=== PATIENT | male | born 1960 | race Caucasian/White ===

== ENCOUNTER → 2016-11-03 | Outpatient (CLI) | payer BC ==
[2016-11-03 19:04] LABS: Blood Urea Nitrogen 13 mg/dL (9-20); Non-African American GFR(MDRD) >60 (>60 ml/min/1.73 sqM)
--- NOTE | 2016-11-03 19:39 | CT ---
EXAMINATION TYPE: CT chest w con DATE OF EXAM: 11/03/2016 COMPARISON: 10/18/2015 HISTORY: Patient has no complaints at time of study. Follow up study for history of lung CA. CT DLP: 964.7 mGycm Automated exposure control for dose reduction was used. CONTRAST: CT scan of the chest is performed with IV Contrast, patient injected with 100 mL of Omnipaque 300. FINDINGS: There are surgical clips at the right pulmonary hilum. There is no mediastinal adenopathy. There are no hilar masses. Heart size is normal. There is subpleural interstitial infiltrate in the right lower lobe. The left lung is clear. There is no pleural effusion. There is fatty infiltration of the liver . IMPRESSION: Right lung surgery. No evidence of recurrent tumor. Subpleural chronic right lower lobe density consistent with scarring that appears stable compared to old exam. Fatty infiltration of the liver.
== END ==
LOC: RADCTMAIN 18:37
PROVIDERS: ATTEND Internal Medicine Hematology & Oncology
DX: C34.90 Malignant neoplasm of unspecified part of unspecified bronchus or lung (principal)
CPT/HCPCS: 82565; 84520; 71260; 36415; Q9967

== ENCOUNTER → 2016-12-02 | Outpatient (CLI) | payer BC ==
--- NOTE | 2016-12-03 08:36 | PN ---
This patient is coming in for an annual CPAP and obstructive sleep apnea check. He has severe disease with an AHI of 109. I am glad to report that he has lost approximately 20 pounds. His weight is down to 351. He is using his Simplex full face mask. Looking for an alternative mask and upon further investigation, we were able to fit this patient to an AirFit F20 touch full face mask. A sample was given out to him today. He is doing well. He has no specific complaints. He is averaging more than 6 hours of CPAP use per night and he is waking up alert and awake during the day. No snoring while on the machine. No new onset of medical problems and comorbidities. The patient is benefiting from treatment. He is using his CPAP machine which is an auto machine with a minimum pressure of 10 and maximum pressure of 20. His treatment is successful for now. [place] score is down to 2. No change in medication. Medical problems are essentially the same. CURRENT VITAL SIGNS: Temperature is 97.8, pulse is 62, respirations 16, BP is 145/89, saturation 95% on room air. [place] score is at 2, BMI is 50.3, height is 5,10, weight is 351. GENERAL APPEARANCE: Calm, comfortable. HEENT: Negative for JVD, no goiter or neck mass, short neck, crowding of posterior pharynx. LUNGS: Diminished breath sounds, otherwise clear. Heart sounds are regular rhythm, normal S1, S2. ABDOMEN: Soft, nontender, no organomegaly. EXTREMITIES: No edema, no cyanosis or clubbing. IMPRESSION: 1. Severe symptomatic obstructive sleep apnea, apnea-hypopnea index of 109. Currently on auto CPAP, minimum pressure of 10, maximum pressure of 20 with good clinical response and compliance. 2. Obesity with interval 22 pound weight loss. 3. Hypersomnia, improved and recovered. Current [place] score is down to 2. 4. Diabetes. 5. Hypertension. 6. History of lung cancer, resected. PLAN: 1. Continue auto CPAP at the same level of pressures. 2. Switch this patient to an AirFit F20 touch full face mask. 3. Encourage further weight loss. 4. Treatment was successful, see me back in 1 year's time or earlier if needed. IBIS
== END | disposition home or self-care (01) ==
LOC: SLEEP 16:29
PROVIDERS: ATTEND Internal Medicine Critical Care Medicine
DX: G47.33 Obstructive sleep apnea (adult) (pediatric) (principal); E66.9 Obesity, unspecified; E11.9 Type 2 diabetes mellitus without complications; I10 Essential (primary) hypertension; Z85.118 Personal history of other malignant neoplasm of bronchus and lung

== ENCOUNTER → 2017-08-28 | Outpatient (CLI) | payer BC ==
[2017-08-28 10:59] LABS: INR 1.1 (<1.2); Partial Thromboplastin Time 22.9 sec (22.0-30.0); Prothrombin Time 10.7 sec (9.0-12.0)
[2017-08-28 11:01] LABS: Basophils # (A) 0.1 k/uL (0-0.2); Basophils % (A) 1 %; Eosinophils # (A) 0.4 k/uL (0-0.7); Eosinophils % (A) 4 %; HCT 46.9 % (39.0-53.0); HGB 15.6 gm/dL (13.0-17.5); Lymphocytes # (A) 2.1 k/uL (1.0-4.8); Lymphocytes % (A) 25 %; MCH 29.6 pg (25.0-35.0); MCHC 33.3 g/dL (31.0-37.0); MCV 88.8 fL (80.0-100.0); Mean Platelet Volume 7.3; Monocytes # (A) 0.4 k/uL (0-1.0); Monocytes % (A) 5 %; Neutrophils % (A) 62 %; Platelet Count 186 k/uL (150-450); RBC 5.28 m/uL (4.30-5.90); RDW 13.9 % (11.5-15.5); WBC 8.1 k/uL (3.8-10.6)
[2017-08-28 11:14] LABS: Potassium 4.6 mmol/L (3.5-5.1)
== END | disposition home or self-care (01) ==
LOC: LABPAT 09:31
PROVIDERS: ATTEND Orthopaedic Surgery
DX: Z01.812 Encounter for preprocedural laboratory examination (principal); M17.12 Unilateral primary osteoarthritis, left knee
CPT/HCPCS: 36415; 80051; 85025; 85610; 85730; 87070

== ENCOUNTER 2017-09-07 09:24 | Inpatient (IN) | payer BC ==
[2017-08-31 11:04] VITALS: BMI 44.7
--- NOTE | 2017-09-06 13:32 | HP ---
HISTORY AND PHYSICAL DATE OF ADMISSION: 09/07/2017 HISTORY OF PRESENT ILLNESS: Renard Zheng is a 56-year-old patient seen with symptomatic left knee osteoarthritis. We discussed treatment options. He elected to proceed with left total knee arthroplasty. Consent regarding the procedure was obtained. Medical clearance was provided by Dr. Tor Dupree. PAST MEDICAL HISTORY: Hypertension, yyq-vgdmycm-vqemfetxc diabetes. SURGICAL HISTORY: Noncontributory. MEDICATIONS: Lisinopril/hydrochlorothiazide, metformin, aspirin. ALLERGIES: PENICILLIN. SOCIAL HISTORY: Patient denies. Denies current tobacco use. PHYSICAL EXAMINATION: Evaluation left knee range of motion 0-120 degrees. Large effusion. Tenderness along the lateral joint line. Positive lateral Dallin's crepitus along without patellofemoral compartments. Range of motion. Ligaments stable. Hip rotation without pain. Distal neurovascular exam is intact. RADIOGRAPHS: Left knee radiographs revealed severe lateral and moderate patellofemoral compartment osteoarthritis. IMPRESSION: 1. Left knee osteoarthritis. 2. Njv-alaymiw-neitzifyt diabetes. 3. Hypertension. 4. Obesity. PLAN: Left total knee arthroplasty. Surgery scheduled 09/07/17. MMODL / IJN: [id number] /
[~2017-09-07 09:24] MED LIST: ACETAMINOPHEN TAB 500 MG TAB PO ONE; DEXAMETHASONE SOD PHOSPHATE 10 MG/ML 1 ML VIAL IV ONE; LIDOCAINE 1% 20 ML VIAL (10MG/ML) FOR IV START INTRADERMA PRN; MELOXICAM 7.5 MG TAB PO ONE; MIDAZOLAM 2 MG/2 ML VIAL IV PRN; MORPHINE SULFATE 4 MG/ML SYRINGE IV PRN; ONDANSETRON 4 MG/2 ML VIAL IVP ONE; TRANEXAMIC ACID 1,000 MG in SODIUM CHLORIDE 0.9% 50 ML IVPB ONE; VANCOMYCIN 2,000 MG in SODIUM CHLORIDE 0.9% 500 ML IVPB ONE
[2017-09-07] MEDS: LACTATED RINGERS 1,000 ML IV SCH ×2 (10:16→17:14)
[2017-09-07 10:31] LABS: Glucose,Whole Blood 223 mg/dL (75-99)
[2017-09-07] MEDS ORDERED: ROPIVACAINE 1,100 MG, SODIUM CHLORIDE 0.9% 330 ML MISCELLANE PRN ×2 (11:44)
--- NOTE | 2017-09-07 11:46 | P.ONQ ---
Anesthesiology Proc Note - PNB - Peripheral Nerve Block Performed Left Adductor Canal Infusion Time Out Performed: Yes Procedure Start Time: :29 Procedure Stop Time: :35 Indication: Acute Post-Operative Pain, Requested by physician Sedation Type: Sedate with meaningful contact maintained Preparation: Sterile Dressing Position: Supine Catheter: Indwelling Needle Types: On-Q Needle Size: 100mm (4") Needle Gauge: 21 Technique: Ultrasound Injectate: 0.5% Ropivacaine (see comment for volume) (ropi .5% 20 cc) Blood Aspirated: No Pain Paresthesia on Injection Noted: No Resistance on Injection: Normal Events: Uneventful and Well Tolerated
[2017-09-07] MEDS ORDERED: ROPIVACAINE 246.25 MG, EPINEPHrine 0.5 MG, KETOROLAC 30 MG, cloNIDine HCL/PF 80 MCG, WA... MISCELLANE ONE ×5 (12:45)
[2017-09-07] MEDS ORDERED: SODIUM CHLORIDE 0.9% 100 ML BAG ONE (13:27)
[2017-09-07] MEDS ORDERED: KETAMINE 10 MG/ML 20 ML VIAL ONE (13:27)
[2017-09-07] MEDS ORDERED: MIDAZOLAM 2 MG/2 ML VIAL ONE (13:27)
[2017-09-07] MEDS ORDERED: TRANEXAMIC ACID 1,000 MG/10 ML VIAL ONE (13:27)
[2017-09-07] MEDS ORDERED: LIDOCAINE 1% INJ 10MG/ML (20 ML MDV) ONE (13:27)
[2017-09-07] MEDS ORDERED: PROPOFOL 10 MG/ML 20 ML VIAL IV ONE (13:27)
[2017-09-07] MEDS ORDERED: fentaNYL (PF) 50 MCG/ML 2 ML AMP ONE (13:27)
[2017-09-07] MEDS ORDERED: CLINDAMYCIN 1,800 MG in SODIUM CHLORIDE 0.9% IRRIGATIO 3,000 ML IRRIGATION ONE (14:07)
[2017-09-07] MEDS ORDERED: LACTATED RINGERS 1,000 ML IV ONE ×2 (14:50→16:25)
[2017-09-07] MEDS ORDERED: ONDANSETRON 4 MG/2 ML VIAL IVP PRN (15:52)
[2017-09-07] MEDS ORDERED: hydrOXYzine PAMOATE 25 MG CAP PO PRN (15:52)
[2017-09-07] MEDS ORDERED: HYDROmorphone 0.5 MG/0.5 ML SYRINGE IVP PRN ×3 (15:52)
[2017-09-07] MEDS ORDERED: NALOXONE 0.4 MG/ML 1 ML VIAL IV PRN (15:52)
[2017-09-07] MEDS ORDERED: HYDROcodone/APAP 7.5-325MG 1 EACH TAB PO PRN ×2 (15:52)
--- NOTE | 2017-09-07 15:52 | P.OP ---
Date of Procedure: 09/07/17 Preoperative Diagnosis: Left knee osteoarthritis Postoperative Diagnosis: Left knee osteoarthritis Procedure(s) Performed: Left total knee arthroplasty Implants: 1. Microport evolution MP CS/CR size 6 left cemented femoral component 2. Microport evolution MP 6 left cemented tibial tibial base 3. Microport evolution MP CS size 6 left 10 mm polyethylene tibial insert 4. Microport advance all polyethylene cemented patella 38 mm Anesthesia: regional (Adductor canal catheter), local, spinal Surgeon: Faustino Ayers Director Of Advertising Sales #1: Fabricio Woodard Estimated Blood Loss (ml): 75 Pathology: other (Bone) Condition: stable Disposition: PACU Indications for Procedure: 56-year-old patient seen was symptomatic left knee osteoarthritis. After treatment options were discussed, he elected to proceed with total knee arthroplasty. Operative Findings: see description of procedure Description of Procedure: Patient was taken to the operative suite after having an adductor canal catheter placed by the department of anesthesia. Patient underwent a spinal anesthetic by the department of anesthesia. Patient was given preoperative IV intake antibiotics and TXA. A well-padded tourniquet was placed about the [] lower extremity. The lower extremity was then prepped and draped in the normal sterile orthopedic fashion. The extremity was elevated, a tourniquet was insufflated to 350. A standard anterior incision was made sharply through skin. Dissection was taken down through the subcutaneous soft tissues down to the extensor mechanism. A medial arthrotomy was performed, patella was everted and knee was flexed. There was advanced osteoarthritis noted. A proximal tibial cutting guide was positioned. Proximal tibial cut was made. A distal intramedullary femoral cutting guide was positioned, distal femoral cut made. We placed the appropriate sizing guide and selected the appropriate size. A distal 4-in-1 femoral cutting block was positioned, distal femoral cuts were made. We now placed a trial femoral component into position, along with an appropriate size tibial tray and insert. We now took the knee through range of motion and had full extension good flexion and good overall soft tissue balance noted. The patella was everted and a flush cut made with patellar quad tendon. We templated the patella, appropriate drill holes were made. An appropriate trial patella was positioned, knee was taken through full range of motion with the patella tracking very nicely. The trial patella was removed. Drill holes were made through the femoral component. All trial components were removed after marking off the appropriate rotation of the tibia. Retractors were now positioned along the proximal tibia. An appropriate keel punch was made with the appropriate size tibial guide. At this point appropriate size implants were chosen and opened. The joint was irrigated copiously with pulse lavage mechanical irrigation. The posterior capsule was infiltrated with local analgesic. We mixed antibiotic methylmethacrylate. Once the methyl methacrylate was ready, the tibial component was cemented into place removing any excess methylmethacrylate. The femoral component was cemented into place removing the removing any excess methylmethacrylate. We then inserted the appropriate size polyethylene tibial insert. We made sure that it was locked into position. We took the knee into full extension, and then back in a flexion making sure we had removed any excess methylmethacrylate. The patellar component was then cemented down and secured with clamp. Excess methylmethacrylate removed. We kept the knee in full extension, patellar clamp in position until methylmethacrylate had hardened. Once it had hardened the patellar clamp was removed. The knee was taken through full range of motion. The patella tracked nicely. There was good soft tissue balancing. The tourniquet was now released. Additional hemostasis was achieved via electrocautery. The second gram of TXA was given. The wound was irrigated with pulse lavage mechanical irrigation. The extensor mechanism was repaired with Vicryl. We checked the repair with range of motion and it was stable. The subcutaneous soft tissues were repaired with Vicryl in layers. The skin was approximated with pernio/Dermabond. Sterile dressings were applied followed by loose web roll and Blanco bandage. The patient was transferred to a bed, and taken to recovery in stable and satisfactory condition. Ashish SPIVEY assisted with the procedure.
--- NOTE | 2017-09-07 16:18 | XR ---
Left knee Limited HISTORY: Status post knee arthroplasty 2 views of the left knee Patient is status post left knee arthroplasty. There is lucency in the soft tissues. Alignment is zo tomic. IMPRESSION: Orthopedic follow-up.
[2017-09-07] MEDS: INSULIN ASPART 100 UNIT/ML 1 ML 10 ML VIAL SQ SCH ×3 (17:09→21:05)
[2017-09-07] MEDS: metFORMIN 500 MG TAB PO SCH (17:13)
[2017-09-07] MEDS: traMADol 50 MG TAB PO SCH ×2 (17:13→21:05)
[2017-09-07 17:21] LABS: Glucose,Whole Blood 280 mg/dL (75-99)
[2017-09-07 20:18] LABS: Glucose,Whole Blood 341 mg/dL (75-99)
[2017-09-07] MEDS ORDERED: SENNOSIDES-DOCUSATE SODIUM 1 EACH TAB PO SCH (21:00)
[2017-09-07] MEDS ORDERED: INSULIN DETEMIR 100 UNIT/ML 10 ML VIAL SQ STA (23:10)
--- NOTE | 2017-09-08 00:21 | CONS ---
CONSULTATION REASON FOR CONSULTATION: Postoperative medical management. HISTORY OF PRESENT ILLNESS: This 56-year-old gentleman is status post left total knee arthroplasty today. The patient had significant arthritis. The patient is doing fairly well. He has a past history of diabetes mellitus, obesity and previous history of carcinoma of the lung. The patient is actually doing fairly well. He denies any pain. REVIEW OF SYSTEMS: NEURO: Denies any headaches, dizziness. PSYCH: No anxiety. CARDIAC: No chest pain, angina, palpitation. RESPIRATORY: Denies shortness of breath, cough. GI: No nausea, vomiting, abdominal pain. No bowel movement. : No symptoms of dysuria or hematuria. EXTREMITIES: Denies pain at present. CONSTITUTIONAL: No fever or chills. PHYSICAL EXAMINATION: Pleasant gentleman, at present in no distress. VITAL SIGNS: Temperature 96.5, pulse 67, respirations 16, blood pressure 129/64, pulse ox of 94% on room air. HEENT: Normocephalic. NECK: No JVD. CHEST: Clear to auscultation. CARDIAC: Normal S1, S2 with no gallops, murmurs. ABDOMEN: Soft. Bowel sounds present. Extremities reveal no edema. Good pulses, both upper and lower extremities. Neurologically awake, alert, oriented x3 with well-coordinated movements, both upper extremities. LABORATORY ASSESSMENT: Blood sugars which were elevated. ASSESSMENT: 1. Diabetes mellitus with elevated blood sugar. 2. Status post left total knee arthroplasty. 3. Remote history of carcinoma of the lung. PLAN: The patient is stable. Continue present medical regimen. Patient's condition was discussed with the patient. Will give him Levemir 15 units tonight. MMODL / IJN: [id number] /
[2017-09-08] MEDS: LACTATED RINGERS 1,000 ML IV SCH ×2 (04:35→05:16)
[2017-09-08 07:25] LABS: Glucose,Whole Blood 196 mg/dL (75-99)
--- NOTE | 2017-09-08 07:55 | P.PN ---
Progress Note - Text 09/08 740am 56-year-old male status post left total knee replacement. Patient has an On-Q pump for postop pain control with the solution running at 8 mL an hour. Patient has VAS of 0. Patient does have thigh pain which is probably secondary to tourniquet. -
[2017-09-08] MEDS ORDERED: GLIMEPIRIDE 1 MG TAB PO SCH (08:15)
[2017-09-08] MEDS: INSULIN ASPART 100 UNIT/ML 1 ML 10 ML VIAL SQ SCH ×2 (08:17→12:37)
[2017-09-08 08:19] LABS: Basophils % (A) 0 %; Eosinophils # (A) 0.2 k/uL (0-0.7); Eosinophils % (A) 1 %; HCT 41.9 % (39.0-53.0); HGB 13.8 gm/dL (13.0-17.5); Lymphocytes # (A) 2.1 k/uL (1.0-4.8); Lymphocytes % (A) 16 %; MCH 29.6 pg (25.0-35.0); MCHC 32.9 g/dL (31.0-37.0); MCV 89.8 fL (80.0-100.0); Mean Platelet Volume 7.6; Monocytes # (A) 0.7 k/uL (0-1.0); Monocytes % (A) 5 %; Neutrophils # (A) 9.6 k/uL (1.3-7.7); Neutrophils % (A) 76 %; Platelet Count 200 k/uL (150-450); RBC 4.67 m/uL (4.30-5.90); RDW 14.1 % (11.5-15.5); WBC 12.7 k/uL (3.8-10.6)
[2017-09-08] MEDS: metFORMIN 500 MG TAB PO SCH (08:21)
[2017-09-08] MEDS ORDERED: ENOXAPARIN 30 MG/0.3 ML SYRINGE SQ SCH (09:00)
[2017-09-08] MEDS ORDERED: LISINOPRIL-HCTZ 20-25 MG 1 EACH TAB PO SCH (09:00)
[2017-09-08] MEDS ORDERED: MELOXICAM 7.5 MG TAB PO SCH (09:00)
[2017-09-08] MEDS ORDERED: FAMOTIDINE 20 MG TAB PO SCH (09:00)
[2017-09-08] MEDS: traMADol 50 MG TAB PO SCH ×2 (10:27→14:14)
[2017-09-08 11:48] LABS: Glucose,Whole Blood 224 mg/dL (75-99)
--- NOTE | 2017-09-08 14:08 | P.PN ---
Subjective Progress Note Date: 09/08/17 Principal diagnosis: Status post left total knee arthroplasty Patient seen today resting in his hospital bed, he appears comfortable. Ambulated well with therapy. His pain is controlled. He denies any headaches, lightheadedness, chest pain or shortness breath. Objective - Vital Signs Vital signs: Vital Signs Temp 97.6 F 09/08/17 07:28 Pulse 65 09/08/17 07:28 Resp 18 09/08/17 07:28 BP 113/58 09/08/17 07:28 Pulse Ox 94 L 09/08/17 07:28 Intake & Output 09/07/17 09/08/17 09/08/17 18:59 06:59 18:59 Intake Total 3001 1960 Output Total 375 975 Balance 2626 985 Intake: IV 3001 Intake, IV Titration 960 Amount Lactated Ringers 1,000 ml 960 @ 80 mls/hr IV .[id number] CECILY Rx#:[id number] Oral 1000 Output: Urine 300 975 Estimated Blood Loss 75 Other: Voiding Method Urinal - Exam Left lower extremity: Incision is clean, dry, and intact. The prineo tape is in good condition. There is minimal soft tissue swelling and ecchymosis surrounding the medial and lateral aspects of the incision. Calf is soft, no tenderness with palpation. Plantar flexion, dorsiflexion, EHL, FHL are intact. Sensory exam to light touch throughout the extremity is intact, dorsal pedis pulses 2+. - Labs CBC & Chem 7: 09/08/17 07:50 Labs: Abnormal Lab Results - Last 24 Hours (Table) 09/07/17 09/07/17 09/08/17 Range/Units 17:19 20:11 07:14 WBC (3.8-10.6) k/uL Neutrophils # (1.3-7.7) k/uL POC Glucose (mg/dL) 280 H 341 H 196 H (75-99) mg/dL 09/08/17 09/08/17 Range/Units 07:50 11:45 WBC 12.7 H (3.8-10.6) k/uL Neutrophils # 9.6 H (1.3-7.7) k/uL POC Glucose (mg/dL) 224 H (75-99) mg/dL Assessment and Plan Plan: Assessment: Postoperative day 1 status post left total knee arthroplasty. Plan: Pain control, continue use of oral medication GI and DVT prophylaxis, patient currently and subcu medication, likely discharged home on Xarelto 10 mg daily Ice and elevate often/daily dressing changes Continue CPM and encourage incentive spirometer Medical recommendations Discharge planning: Patient will likely be discharged home today Time with Patient: Less than 30
[2017-09-08 15:51] VITALS: BP 118/60; PULSE 68; RESP 20; TEMP 97.8
--- NOTE | 2017-09-08 16:42 | P.DS ---
Providers Date of admission: 09/07/17 09:24 Expected date of discharge: 09/08/17 Attending physician: Faustino Ayers Consults: 09/07/17 15:52 Consult Physician Routine Consulting Provider: Tor Dupree Reason/Comments: Medical management Do you want consulting provider notified?: Yes Primary care physician: Tor Dupree Hospital Course: Date of admission: 09/07/2017 Date of discharge: 09/08/2017 Admission diagnosis: Status post left total knee arthroplasty Discharge diagnosis: Same Attending physician: Dr. Ayers Surgical procedures: Left total knee arthroplasty Brief history: Patient is a 56-year-old male with a history of progressive primary left knee osteoarthritis. At this point patient has failed conservative treatment measures and has opted to proceed with a elective left total knee arthroplasty. Hospital course: Details of patient's surgery can be found in operative report. Patient tolerated the procedure well and was subsequently transported to orthopedic floor. Patient's orthopeidc and medical care was provided daily. Patient had daily laboratory tests performed for evaluation of overall blood counts. Patient had daily physical therapy to include strengthening range of motion as well as education with walker ambulation. Patient had daily CPM usage as part of their physical therapy program. Patient was treated with Lovenox for their postoperative DVT prophylaxis during their inpatient stay. Patient was noted to have a relatively uneventful postoperative course. Patient reported satisfactory pain control with oral pain medications by postoperative day 0. Patient showed satisfactory progress with physical therapy. Patient moved steadily through the program and had no difficulty meeting the goals by postoperative day 1. Given patient's otherwise satisfactory course and having met physical therapy goals, plan is to discharge patient home on postoperative day 1. Discharge condition/disposition: Patient will be discharged home in stable condition. Discharge medications: Instructions are given on resumption of patient's normal daily medications per primary care recommendation, in addition patient will be prescribed [place] 7.5 mg/325 mg, tramadol 50 mg, Colace 100 mg, Xarelto 10 mg. Discharge instructions: 1. Wound care and infection precautions, keep incision dry and covered while showering, no lotions, creams, moisturizers. No soaking, tubs, pools, hottubs. Do not scrub over the incision. 2. Weight-bear as tolerated with walker / cane until follow-up. 3. Ice and elevate when necessary. Do not exceed 20 minutes per hour with ice pack. 4. Utilize compression sleeve until seen at first follow up appointment. 5. Visiting nursing care. 6. Home physical therapy including home CPM. 7. Pain meds and anticoagulants per prescription. 8. Pain medication has potential to cause constipation. Increase oral fluid and fiber intake. Contact primary care provider if you have not had a bowel movement within 48 hours after discharge 9. No anti-inflammatory medication until discussed at first post operative visit, this including Motrin, Aleve, Mobic, Diclofenac. 10. Follow up in office at 2 weeks postop with Ashish Woodard PA-C 11. Follow up with your primary care doctor 7-10 days after discharge. 12. Contact [facility] with any questions, . Procedures: Left total knee arthroplasty Patient Condition at Discharge: Good Plan - Discharge Summary Discharge Rx Participant: No New Discharge Prescriptions: New Rivaroxaban [Xarelto] 10 mg PO DAILY #12 tab Docusate [Colace] 100 mg PO DAILY #30 capsule HYDROcodone/APAP 7.5-325MG [[place] 7.5] 1 - 2 each PO Q6HR PRN #60 tab PRN Reason: Pain traMADol HCl [Ultram] 50 mg PO Q6H PRN #40 tab PRN Reason: Pain No Action metFORMIN HCL [Glucophage] 1,000 mg PO BID Aspirin [Adult Low Dose Aspirin EC] 81 mg PO DAILY Multivitamins, Thera [Multivitamin (formulary)] 1 tab PO DAILY Vitamin E (Unknown Dose) 1 tab PO DAILY [place]-3 Fatty Acids/Fish Oil [Fish Oil 1,000 mg Softgel] 1 cap PO DAILY Lisinopril-Hctz 20-25 mg [Zestoretic 20-25] 1 tab PO DAILY Discharge Medication List Aspirin [Adult Low Dose Aspirin EC] 81 mg PO DAILY 08/31/17 [History] Lisinopril-Hctz 20-25 mg [Zestoretic 20-25] 1 tab PO DAILY 08/31/17 [History] Multivitamins, Thera [Multivitamin (formulary)] 1 tab PO DAILY 08/31/17 [History ] [place]-3 Fatty Acids/Fish Oil [Fish Oil 1,000 mg Softgel] 1 cap PO DAILY [History] Vitamin E (Unknown Dose) 1 tab PO DAILY 08/31/17 [History] metFORMIN HCL [Glucophage] 1,000 mg PO BID 08/31/17 [History] Docusate [Colace] 100 mg PO DAILY #30 capsule 09/08/17 [Rx] HYDROcodone/APAP 7.5-325MG [[place] 7.5] 1 - 2 each PO Q6HR PRN #60 tab 09/08/17 [ Rx] Rivaroxaban [Xarelto] 10 mg PO DAILY #12 tab 09/08/17 [Rx] traMADol HCl [Ultram] 50 mg PO Q6H PRN #40 tab 09/08/17 [Rx] Follow up Appointment(s)/Referral(s): Tor Dupree MD [Primary Care Provider] - 09/16/17 3:45 pm [facility], [NON-STAFF] - Fabricio Woodard PAC [PHYSICIAN [employer] PA[employer]] - 09/23/17 2:30 pm Activity/Diet/Wound Care/Special Instructions: Orthopedic Discharge Instructions: 1. Wound care and infection precautions, keep incision dry and covered while showering, no lotions, creams, moisturizers. No soaking, pools, hot tubs. Do not scrub over incision. 2. Weight-bear as tolerated with walker / cane until follow-up. 3. Ice and elevate when necessary. Do not exceed 20 minutes per hour with ice pack. 4. Utilize compression sleeve until seen at first follow up appointment. 5. Visiting nursing care. 6. Home physical therapy including home CPM. 7. Pain meds and anticoagulants per prescription. 8. Pain medication has potential to cause constipation. Increase oral fluid and fiber intake. Contact primary care provider if you have not had a bowel movement within 48 hours after discharge. 9. No anti-inflammatory medication until discussed at first post operative visit, this including Motrin, Aleve, Mobic, Diclofenac. 10. Follow up in office at 2 weeks postop with Ashish Woodard PA-C 11. Follow up with your primary care doctor 7-10 days after discharge. 12. Contact [facility] with any questions, . Discharge Disposition: HOME WITH HOME HEALTH SERVICES
[2017-09-08 17:38] LABS: Glucose,Whole Blood 245 mg/dL (75-99)
[2017-09-08] MEDS ORDERED: INSULIN DETEMIR 100 UNIT/ML 10 ML VIAL SQ SCH (21:00)
--- NOTE | 2017-09-08 22:24 | PN ---
PROGRESS NOTE ATTENDING PHYSICIAN: Dr. Ayers. CONSULTING PHYSICIAN: Dr. Nader Dupree. CHIEF COMPLAINT: Re-evaluation. HISTORY OF PRESENT ILLNESS: This is a 56-year-old who has undergone left total knee arthroplasty. The patient has a history of degenerative arthritis. The patient also has a history of obesity with previously failed bariatric surgery. The patient has a history of carcinoma of the lung with no evidence of recurrence. The patient has undergone left total knee arthroplasty, doing well. REVIEW OF SYSTEMS: NEURO: Denies any headaches dizziness. Psych: No anxiety. Cardiac no chest pain, angina, palpitations. Respiratory: No shortness of breath, cough, hemoptysis. GI: No nausea, vomiting, abdominal pain, diarrhea. : No symptoms of dysuria, hematuria, urgency or frequency. Extremities: No pain or edema. Constitutional: No fever, chills. PHYSICAL EXAMINATION: A 56-year-old gentleman at present in no distress. Vital Signs recorded, temperature 97.6, pulse 65, respirations 18, blood pressure 113/58, pulse ox of 94% on room air. HEENT: Normocephalic. Neck: No JVD. CHEST: Clear to auscultation. Cardiac: Normal S1, S2 with no gallops, murmurs, rubs. ABDOMEN: Soft. Bowel sounds present. Extremities revealed no edema. Left knee area pain. Neurological: Awake, alert, oriented with well-coordinated movements both upper extremities. LABORATORY ASSESSMENT: CBC which revealed hemoglobin 13.8, white count 12.7, blood sugar was 196 this morning. ASSESSMENT: 1. Diabetes mellitus with poor control. 2. Obesity. 3. Previous history of carcinoma of the lung. PLAN: The patient at present is stable. Continue present medical regimen. Patient's condition discussed with the patient. Prognosis guarded. The patient will be placed on Amaryl 1 mg b.i.d. The patient to continue his metformin. This Amaryl is a new addition. The patient's condition discussed with the patient. Prognosis guarded. Pres[facility] for Am[facility] [place]. MMGRACE / RAIZA: [id number] /
== END 2017-09-08 17:59 | disposition home health service (06) | DRG 470 ==
LOC: 2ORMAIN 09:24 → 3SUR 15:38
PROVIDERS: ADMIT Orthopaedic Surgery; ATTEND Orthopaedic Surgery
PROC: 0SRD0J9 Replacement of Left Knee Joint with Synthetic Substitute, Cemented, Open Approach (ICD-10-PCS; principal; 2017-09-07 12:50)
DX: M17.12 Unilateral primary osteoarthritis, left knee (principal); Z68.41 Body mass index [BMI] 40.0-44.9, adult; E11.9 Type 2 diabetes mellitus without complications; I10 Essential (primary) hypertension; Z79.84 Long term (current) use of oral hypoglycemic drugs; Z85.118 Personal history of other malignant neoplasm of bronchus and lung; Z79.82 Long term (current) use of aspirin; Z79.899 Other long term (current) drug therapy; Z88.0 Allergy status to penicillin; Z98.84 Bariatric surgery status; G47.33 Obstructive sleep apnea (adult) (pediatric); E66.01 Morbid (severe) obesity due to excess calories
CPT/HCPCS: 85025

== ENCOUNTER 2017-10-02 20:04 | Inpatient (IN) | payer BC ==
[2017-10-02] MEDS ORDERED: MORPHINE SULFATE 2 MG/ML SYRINGE IVP STA (20:12)
[2017-10-02] MEDS ORDERED: SODIUM CHLORIDE 0.9% 1,000 ML IV STA (20:17)
[2017-10-02] MEDS ORDERED: SODIUM CHLORIDE 0.9% 500 ML IV STA (20:17)
--- NOTE | 2017-10-02 20:24 | ED ---
General Adult HPI - General Chief complaint: Extremity Injury, Lower Stated complaint: Knee Injury Time Seen by Provider: 10/02/17 20:13 Source: patient, RN notes reviewed, old records reviewed Mode of arrival: EMS Limitations: no limitations - History of Present Illness Initial comments: This is a 56-year-old male the ER for evaluation. Patient does say for evaluation regarding severe left lower Shorty pain. Patient had recent fall knee replacement by Dr. Loulou Hurd here at this hospital. This happened about a month ago. Patient has had adequate healing feeling fine, went to step up into a truck and split open his incision is left leg. Down to the hardware. Minimal bleeding. Patient Brenning of mild pain left lower extremity. No other injury - Related Data Home Medications Medication Instructions Recorded Confirmed Aspirin [Adult Low Dose Aspirin EC] 81 mg PO DAILY 08/31/17 10/02/17 Lisinopril-Hctz 20-25 mg 1 tab PO DAILY 08/31/17 10/02/17 [Zestoretic 20-25] Multivitamins, Thera [Multivitamin 1 tab PO DAILY 08/31/17 10/02/17 (formulary)] [place]-3 Fatty Acids/Fish Oil [Fish 1 cap PO DAILY 08/31/17 10/02/17 Oil 1,000 mg Softgel] Vitamin E (Unknown Dose) 1 tab PO DAILY 08/31/17 10/02/17 metFORMIN HCL [Glucophage] 1,000 mg PO BID 08/31/17 10/02/17 HYDROcodone/APAP 7.5-325MG [[place] 1 - 2 tab PO Q6HR PRN 10/02/17 10/02/17 7.5] Previous Rx's Medication Instructions Recorded Docusate [Colace] 100 mg PO DAILY #30 capsule 09/08/17 Glimepiride [Amaryl] 1 mg PO AC-BRKFST #1 tab 09/08/17 Rivaroxaban [Xarelto] 10 mg PO DAILY #12 tab 09/08/17 traMADol HCl [Ultram] 50 mg PO Q6H PRN #40 tab 09/08/17 Allergies Allergy/AdvReac Type Severity Reaction Status Date / Time Penicillins AdvReac Unknown PASSED OUT Verified 10/02/17 20:17 Review of Systems ROS Statement: Those systems with pertinent positive or pertinent negative responses have been documented in the HPI. ROS Other: All systems not noted in ROS Statement are negative. Past Medical History Past Medical History: Cancer, Diabetes Mellitus, Hypertension, Osteoarthritis ( OA), Sleep Apnea/CPAP/BIPAP Additional Past Medical History / Comment(s): HX LUNG CANCER WITH 1/3 OF RIGHT LUNG REMOVED WITH CHEMO(10YRS AGO).,USES C-PAP MACHINE., [place]. History of Any Multi-Drug Resistant Organisms: None Reported Past Surgical History: Joint Replacement, Orthopedic Surgery Additional Past Surgical History / Comment(s): 1/3 RIGHT LUNG REMOVED. Past Anesthesia/Blood Transfusion Reactions: No Reported Reaction Past Psychological History: No Psychological Hx Reported Smoking Status: Former smoker Past Alcohol Use History: Rare Past Drug Use History: None Reported - Past Family History Mother Family Medical History: No Reported History General Exam - General Exam Comments Initial Comments: Left lower Shorty wound dehiscence, mild bleeding, positive distal pulses dorsalis pedis posterior tibialis Limitations: no limitations General appearance: alert, in no apparent distress Head exam: Present: atraumatic, normocephalic, normal inspection Eye exam: Present: normal appearance, PERRL, EOMI. Absent: scleral icterus, conjunctival injection, periorbital swelling ENT exam: Present: normal exam, mucous membranes moist Neck exam: Present: normal inspection. Absent: tenderness, meningismus, lymphadenopathy Respiratory exam: Present: normal lung sounds bilaterally. Absent: respiratory distress, wheezes, rales, rhonchi, stridor Cardiovascular Exam: Present: regular rate, normal rhythm, normal heart sounds. Absent: systolic murmur, diastolic murmur, rubs, gallop, clicks GI/Abdominal exam: Present: soft, normal bowel sounds. Absent: distended, tenderness, guarding, rebound, rigid Extremities exam: Present: normal inspection, full ROM, normal capillary refill. Absent: tenderness, pedal edema, joint swelling, calf tenderness Back exam: Present: normal inspection Neurological exam: Present: alert, oriented X3, CN II-XII intact Psychiatric exam: Present: normal affect, normal mood Skin exam: Present: warm, dry, intact, normal color. Absent: rash Course Vital Signs 10/02/17 10/02/17 20:16 20:57 Temperature 98.8 F Pulse Rate 78 80 Respiratory 18 18 Rate Blood Pressure 124/58 122/66 O2 Sat by Pulse 97 96 Oximetry - Reevaluation(s) Reevaluation #1: 10/02/17 20:26 ,Dr Ayers is paged Medical Decision Making - Medical Decision Making 56 male the ER for evaluation, positive left wound dehiscence. Patient will go to operating room for surgical repair - Lab Data Result diagrams: 10/02/17 20:52 Lab Results 10/02/17 Range/Units 20:52 WBC 10.3 (3.8-10.6) k/uL RBC 4.38 (4.30-5.90) m/uL Hgb 13.0 (13.0-17.5) gm/dL Hct 39.4 (39.0-53.0) % MCV 89.8 (80.0-100.0) fL MCH 29.7 (25.0-35.0) pg MCHC 33.1 (31.0-37.0) g/dL RDW 14.2 (11.5-15.5) % Plt Count 300 (150-450) k/uL Neutrophils % 70 % Lymphocytes % 20 % Monocytes % 5 % Eosinophils % 3 % Basophils % 0 % Neutrophils # 7.2 (1.3-7.7) k/uL Lymphocytes # 2.1 (1.0-4.8) k/uL Monocytes # 0.5 (0-1.0) k/uL Eosinophils # 0.3 (0-0.7) k/uL Basophils # 0.0 (0-0.2) k/uL - Radiology Data Radiology results: report reviewed (X-ray shows no fracture left knee), image reviewed Disposition Clinical Impression: Wound dehiscence, surgical Narrative: Left Total Knee Wound Dehissence Disposition: ADMITTED IP TO THIS [facility] Condition: Good Is patient prescribed a controlled substance at d/c from ED?: No Referrals: Tor Dupree MD [Primary Care Provider] - 1-2 days
--- NOTE | 2017-10-02 20:54 | XR ---
EXAMINATION TYPE: XR knee limited LT DATE OF EXAM: 10/02/2017 COMPARISON: 09/07/2017 HISTORY: Knee pain TECHNIQUE: 2 views FINDINGS: There is a left knee prosthesis. There is extensive soft tissue deformity over the anterior aspect of the knee consistent with dehiscence. Components are in anatomic position. IMPRESSION: No fracture seen. No evidence of osteomyelitis. Significant anterior soft tissue deformit y.
[2017-10-02 21:02] LABS: Basophils % (A) 0 %; Eosinophils # (A) 0.3 k/uL (0-0.7); Eosinophils % (A) 3 %; HCT 39.4 % (39.0-53.0); Lymphocytes # (A) 2.1 k/uL (1.0-4.8); Lymphocytes % (A) 20 %; MCH 29.7 pg (25.0-35.0); MCHC 33.1 g/dL (31.0-37.0); MCV 89.8 fL (80.0-100.0); Mean Platelet Volume 6.9; Monocytes # (A) 0.5 k/uL (0-1.0); Monocytes % (A) 5 %; Neutrophils # (A) 7.2 k/uL (1.3-7.7); Neutrophils % (A) 70 %; Platelet Count 300 k/uL (150-450); RBC 4.38 m/uL (4.30-5.90); RDW 14.2 % (11.5-15.5); WBC 10.3 k/uL (3.8-10.6)
[2017-10-02 21:11] LABS: ALT 41 U/L (21-72); AST 21 U/L (17-59); Albumin 3.8 g/dL (3.5-5.0); Alkaline Phosphatase 149 U/L (38-126); Anion Gap 13 mmol/L; Blood Urea Nitrogen 14 mg/dL (9-20); Calcium 9.3 mg/dL (8.4-10.2); Carbon Dioxide 22 mmol/L (22-30); Chloride 97 mmol/L (98-107); Glucose 168 mg/dL (74-99); Magnesium 1.7 mg/dL (1.6-2.3); Phosphorus 3.8 mg/dL (2.5-4.5); Potassium 4.4 mmol/L (3.5-5.1); Sodium 132 mmol/L (137-145); Total Bilirubin 0.4 mg/dL (0.2-1.3); Total Protein 6.3 g/dL (6.3-8.2)
--- NOTE | 2017-10-02 21:11 | P.HPOR ---
History of Present Illness H&P Date: 10/02/17 Chief Complaint: Wound dehiscence left knee Patient is a 56 year-old male who reported to [facility] today with regards to a injury to his left knee. Patient states that he was getting up into a truck, when he felt tearing involving the incision over the anterior aspect of his left knee. He had immediate pain, and fell back of the truck landing on his buttock. He noticed the entire incision of the anterior aspect of his left knee it opened up, he was able to see his total knee arthroplasty components. Patient is a recent history of a left total knee arthroplasty by Dr. Ayers on 09/08/2017. Patient had been doing very well after surgery. I personally saw the patient and the office last week for his first postop visit. This incision was well healing, there is no signs of wound dehiscence or infection. He was scheduled to begin outpatient therapy on 10/05/2017. At bedside in the emergency room, he is resting comfortably, the knees bent to about 65, there is multiple bandages wrapped around the knee at this time. I spoke with the ER physician, he states he was able to see the implants. With sterile gloves, I was able to peel back the dressing and confirmed the extent of the left knee wound. Patient was then scheduled for an x-ray and blood work, with plan for immediate transfer to the operating room for irrigation and debridement procedure and wound closure. Review of Systems Constitutional: Reports as per HPI Past Medical History Past Medical History: Cancer, Diabetes Mellitus, Hypertension, Osteoarthritis ( OA), Sleep Apnea/CPAP/BIPAP Additional Past Medical History / Comment(s): HX LUNG CANCER WITH 1/3 OF RIGHT LUNG REMOVED WITH CHEMO(10YRS AGO).,USES C-PAP MACHINE., [place]. History of Any Multi-Drug Resistant Organisms: None Reported Past Surgical History: Joint Replacement, Orthopedic Surgery Additional Past Surgical History / Comment(s): 1/3 RIGHT LUNG REMOVED. Past Anesthesia/Blood Transfusion Reactions: No Reported Reaction Past Psychological History: No Psychological Hx Reported Smoking Status: Former smoker Past Alcohol Use History: Rare Past Drug Use History: None Reported - Past Family History Mother Family Medical History: No Reported History Medications and Allergies Home Medications Medication Instructions Recorded Confirmed Type Aspirin [Adult Low Dose Aspirin EC] 81 mg PO DAILY 08/31/17 10/02/17 History Lisinopril-Hctz 20-25 mg 1 tab PO DAILY 08/31/17 10/02/17 History [Zestoretic 20-25] Multivitamins, Thera [Multivitamin 1 tab PO DAILY 08/31/17 10/02/17 History (formulary)] [place]-3 Fatty Acids/Fish Oil [Fish 1 cap PO DAILY 08/31/17 10/02/17 History Oil 1,000 mg Softgel] Vitamin E (Unknown Dose) 1 tab PO DAILY 08/31/17 10/02/17 History metFORMIN HCL [Glucophage] 1,000 mg PO BID 08/31/17 10/02/17 History Docusate [Colace] 100 mg PO DAILY #30 capsule 09/08/17 10/02/17 Rx Glimepiride [Amaryl] 1 mg PO AC-BRKFST #1 tab 09/08/17 10/02/17 Rx Rivaroxaban [Xarelto] 10 mg PO DAILY #12 tab 09/08/17 10/02/17 Rx traMADol HCl [Ultram] 50 mg PO Q6H PRN #40 tab 09/08/17 10/02/17 Rx HYDROcodone/APAP 7.5-325MG [[place] 1 - 2 tab PO Q6HR PRN 10/02/17 10/02/17 History 7.5] Allergies Allergy/AdvReac Type Severity Reaction Status Date / Time Penicillins AdvReac Unknown PASSED OUT Verified 10/02/17 20:17 Physical Examination Left lower extremity: Very limited exam, multiple Blanco bandages and sterile web roll in place. I utilized sterile gloves, and inspected the incision by peeling back the dressing , obvious dehiscence with visualization of the total knee arthroplasty components. His sensory exam to light touch throughout that extremity is intact Plantar flexion, dorsiflexion, EHL, FHL are intact Range of motion of the knee was not assessed due to discomfort Logroll maneuver the hip reproduces no pain Dorsal pedis pulses 2+ Results - Labs Labs: H & H 10/02/17 Range/Units 20:52 Hgb 13.0 (13.0-17.5) gm/dL Hct 39.4 (39.0-53.0) % Result Diagrams: 10/02/17 20:52 - Diagnostic results Knee x-ray: report reviewed, image reviewed Assessment and Plan Plan: imaging: AP and lateral views of the knee were obtained, obvious soft tissue injury was visualized. No obvious acute fractures or dislocations were present. Total knee arthroplasty components remain intact Assessment: Left knee wound dehiscence Reason history left total knee arthroplasty, 09/08/2017 Plan: Case was discussed with Dr. Ayers, this including physical exam findings and imaging studies. Patient was made nothing by mouth immediately, he will be transferred up to the operating room with plan for irrigation and debridement and wound closure Patient will likely be placed in a knee immobilizer Local wound care Pain control DVT prophylaxis after surgery Further recommendations to follow after surgery Time with Patient: Less than 30
[2017-10-02 21:18] LABS: INR 1.1 (<1.2); Prothrombin Time 10.8 sec (9.0-12.0)
[2017-10-02 21:20] LABS: Partial Thromboplastin Time 20.9 sec (22.0-30.0)
[2017-10-02 21:58] LABS: Creatine Kinase 92 U/L (55-170)
[2017-10-02] MEDS ORDERED: LIDOCAINE 1% INJ 10MG/ML (20 ML MDV) ONE (21:59)
[2017-10-02] MEDS ORDERED: fentaNYL (PF) 50 MCG/ML 2 ML AMP ONE (21:59)
[2017-10-02] MEDS ORDERED: ONDANSETRON 4 MG/2 ML VIAL ONE (21:59)
[2017-10-02] MEDS ORDERED: HYDROmorphone (PF) 1 MG/ML ONE (21:59)
[2017-10-02] MEDS ORDERED: PROPOFOL 10 MG/ML 20 ML VIAL IV ONE (21:59)
[2017-10-02] MEDS ORDERED: ROCURONIUM BROMIDE 10 MG/ML 10 ML VIAL IV ONE (21:59)
[2017-10-02] MEDS ORDERED: KETOROLAC 30 MG/ML 1 ML VIAL ONE (21:59)
[2017-10-02] MEDS ORDERED: MIDAZOLAM 2 MG/2 ML VIAL ONE (21:59)
[2017-10-02] MEDS ORDERED: SUCCINYLCHOLINE CHLORIDE VIAL 200 MG/10 ML VIAL IV ONE (21:59)
[2017-10-02 22:11] LABS: Creatine Kinase MB 1.4 ng/mL (0.0-2.4); Troponin I <0.012 ng/mL (0.000-0.034)
[2017-10-02] MEDS ORDERED: VANCOMYCIN 2,000 MG in SODIUM CHLORIDE 0.9% 500 ML IVPB ONE (22:15)
[2017-10-02] MEDS ORDERED: CLINDAMYCIN 1,800 MG in SODIUM CHLORIDE 0.9% IRRIGATIO 3,000 ML IRRIGATION ONE ×4 (22:25)
[2017-10-02] MEDS ORDERED: IV FLUID CONTINUATION 700 ML IV ONE (22:25)
[2017-10-02] MEDS ORDERED: LACTATED RINGERS 1,000 ML IV ONE (23:23)
[2017-10-02] MEDS ORDERED: ACETAMINOPHEN TAB 325 MG TAB PO PRN (23:37)
[2017-10-02] MEDS ORDERED: MORPHINE SULFATE 2 MG/ML SYRINGE IVP PRN ×2 (23:37)
[2017-10-02] MEDS ORDERED: MAGNESIUM HYDROXIDE 2,400 MG/10 ML CUP PO PRN (23:37)
[2017-10-02] MEDS ORDERED: NALOXONE 0.4 MG/ML 1 ML VIAL IV PRN (23:37)
[2017-10-02] MEDS ORDERED: MORPHINE SULFATE 4 MG/ML SYRINGE IV PRN ×2 (23:37)
[2017-10-02] MEDS ORDERED: ONDANSETRON 4 MG/2 ML VIAL IVP PRN (23:37)
[2017-10-02] MEDS ORDERED: HYDROcodone/APAP 7.5-325MG 1 EACH TAB PO PRN ×2 (23:37)
--- NOTE | 2017-10-02 23:43 | P.OP ---
Date of Procedure: 10/02/17 Preoperative Diagnosis: Left knee incisional dehiscence with history of total knee arthroplasty Postoperative Diagnosis: Left knee incisional dehiscence with medial retinacular tear and quadriceps tendon tear Procedure(s) Performed: Left knee irrigation with repair repair medial retinaculum, repair quadriceps tendon and skin dehiscence Anesthesia: ERIC Surgeon: Faustino Ayers Wood Molder #1: Fabricio Woodard Estimated Blood Loss (ml): 50 Pathology: none sent Condition: stable Disposition: PACU Indications for Procedure: 56-year-old patient who injured his right knee with history of previous total knee arthroplasty. He obviously had complete dehiscence of the previous incision and retinacular tear with obvious visual exposure of the prosthesis. I recommended irrigation with repair. He was agreeable consent was obtained. Operative Findings: see description of procedure Description of Procedure: Patient was taken to the operative suite. Patient was given IV antibiotics. Patient underwent a general anesthetic by the department of anesthesia. A well- padded tourniquet was placed proximal lower extremity. The left lower extremity was prepped and draped in the normal sterile orthopedic fashion for an open wound. The tourniquet was insufflated to 300. We noted complete dehiscence of the entire incision exposing the entire total knee arthroplasty. At this point I removed some devitalized appearing tissue. I now irrigated the wound out copiously with 3000 mL antibiotic irrigant via mechanical pulse lavage irrigation. I now explored the wound. There was complete dehiscence and tearing of the medial retinaculum. There was a intrasubstance tear of the medial retinaculum medially. There was a lateral sided quadriceps tendon tear along with a retinacular tear but the medial quadriceps tendon appeared intact. We now again irrigated the wound with 3000 mL of antibiotic irrigant via mechanical pulse lavage mechanical irrigation. We now explored the wound and all components appeared stable with no injury or damage to them. I now began meticulously repairing the quadriceps tendon and medial retinacular tear utilizing #2 Ethibond via multiple simple interrupted suture technique. Once this was completed we now oversewed the entire repair of the medial retinaculum and quadriceps tendon utilizing #3 Vicryl and a running and interrupted suture fashion. Once this was completed we checked our repair we had a good stable repair to flexion to 90. We now irrigated the subcutaneous soft tissues and repaired those utilizing 0 Vicryl for the deep soft tissue and 2-0 Vicryl for more superficial soft tissue. The skin was approximated with skin gokul. We apply sterile dressings followed by loose web bone Blanco bandage. The tourniquet was released and immediate capillary refill digits noted. The patient was placed into a knee immobilizer. The patient was transferred to recovery stable condition. Ashish SPIVEY assisted procedure.
[2017-10-03] MEDS: HYDROmorphone 1 MG/ML 1 ML SYRINGE IVP ONE ×2 (00:05)
[2017-10-03 00:45] VITALS: BMI 44.7
[2017-10-03] MEDS: VANCOMYCIN 2,000 MG in SODIUM CHLORIDE 0.9% 500 ML IVPB SCH ×3 (05:38→21:46)
[2017-10-03 06:54] LABS: Glucose,Whole Blood 204 mg/dL (75-99)
[2017-10-03] MEDS ORDERED: VANCOMYCIN IV PER PHARMACY 1 EACH MISC MISCELLANE SCH (07:00)
[2017-10-03 07:16] LABS: Basophils # (A) 0.1 k/uL (0-0.2); Basophils % (A) 1 %; Eosinophils # (A) 0.4 k/uL (0-0.7); Eosinophils % (A) 4 %; HCT 35.8 % (39.0-53.0); HGB 11.7 gm/dL (13.0-17.5); Lymphocytes % (A) 20 %; MCH 29.5 pg (25.0-35.0); MCHC 32.7 g/dL (31.0-37.0); MCV 90.3 fL (80.0-100.0); Mean Platelet Volume 7.2; Monocytes # (A) 0.6 k/uL (0-1.0); Monocytes % (A) 6 %; Neutrophils # (A) 6.8 k/uL (1.3-7.7); Neutrophils % (A) 68 %; Platelet Count 262 k/uL (150-450); RBC 3.97 m/uL (4.30-5.90); RDW 14.1 % (11.5-15.5)
[2017-10-03] MEDS: traMADol 50 MG TAB PO SCH ×4 (09:18→21:45)
[2017-10-03] MEDS: RIVAROXABAN 10 MG TAB PO SCH (09:20)
--- NOTE | 2017-10-03 10:17 | P.PN ---
Subjective Progress Note Date: 10/03/17 Principal diagnosis: s/p left knee repair medial retinaculum, quadriceps tendon repair, skin dehiscence repair Patient seen today resting in hospital bed, he appears comfortable. Pain is controlled at this time. He denies chest pain and shortness of breath. Objective - Vital Signs Vital signs: Vital Signs Temp 97.5 F L 10/03/17 07:39 Pulse 62 10/03/17 07:39 Resp 16 10/03/17 07:39 BP 133/80 10/03/17 07:39 Pulse Ox 97 10/03/17 07:39 Intake & Output 10/02/17 10/03/17 10/03/17 18:59 06:59 18:59 Intake Total 2202 Output Total 350 Balance 1852 Weight 149.685 kg Intake: IV 1402 Intake, IV Titration 800 Amount Sodium Chloride 0.9% 1, 800 000 ml @ 100 mls/hr IV . Q10H [facility] Rx#:[id number] Output: Urine 300 Estimated Blood Loss 50 Other: Voiding Method Urinal - Exam Left lower extremity: Immobilizer is in place, Blanco bandages in place with postop bandage. I will leave this for 1 additional day. Obvious soft tissue swelling present around the foot and ankle He is able to wiggle the toes and minimal difficulty, his dorsalis pedis pulses 2+. His sensory exam to light touch throughout the extremities intact. - Labs CBC & Chem 7: 10/03/17 06:27 10/02/17 20:52 Labs: Abnormal Lab Results - Last 24 Hours (Table) 10/02/17 10/02/17 10/03/17 Range/Units 20:52 20:52 06:27 RBC 3.97 L (4.30-5.90) m/uL Hgb 11.7 L (13.0-17.5) gm/dL Hct 35.8 L (39.0-53.0) % APTT 20.9 L (22.0-30.0) sec Sodium 132 L (137-145) mmol/L Chloride 97 L (98-107) mmol/L Creatinine 0.52 L (0.66-1.25) mg/dL Glucose 168 H (74-99) mg/dL POC Glucose (mg/dL) (75-99) mg/dL Alkaline Phosphatase 149 H (38-126) U/L 10/03/17 Range/Units 06:52 RBC (4.30-5.90) m/uL Hgb (13.0-17.5) gm/dL Hct (39.0-53.0) % APTT (22.0-30.0) sec Sodium (137-145) mmol/L Chloride (98-107) mmol/L Creatinine (0.66-1.25) mg/dL Glucose (74-99) mg/dL POC Glucose (mg/dL) 204 H (75-99) mg/dL Alkaline Phosphatase (38-126) U/L Assessment and Plan Plan: Assessment: 1. Postop day 1 status post left knee medial retinacular repair, quadriceps tendon repair and skin dehiscence repair Plan: Pain control, continue Xarelto medications GI and DVT prophylaxis, continue current medication Daily dressing changes, I will change the postoperative bandage tomorrow Ice and elevate often Toe-touch weightbearing with left knee Medical recommendations Continue IV antibiotics at this time Will likely discharged home tomorrow Time with Patient: Less than 30
[2017-10-03] MEDS: metFORMIN 500 MG TAB PO SCH ×2 (11:38→21:24)
[2017-10-03 11:46] LABS: Amorphous Sediment,Urine Rare /hpf; Appearance,Urine Cloudy (Clear); Bacteria,Urine Moderate /hpf; Bilirubin,Urine Negative (Negative); Blood,Urine Negative (Negative); Color,Urine Yellow; Glucose,Urine (UA) Trace (Negative); Ketones,Urine Negative (Negative); Leukocyte Esterase,Urine Large (Negative); Mucus,Urine Occasional /hpf; Nitrite,Urine Positive (Negative); Protein,Urine Trace (Negative); Specific Gravity,Urine 1.021 (1.001-1.035); Squamous Epithelial Cell,Urine 2 /hpf (0-4); Urobilinogen,Urine <2.0 mg/dL (<2.0); WBC,Urine 120 /hpf (0-5)
[2017-10-03 11:47] LABS: Glucose,Whole Blood 215 mg/dL (75-99)
[2017-10-03] MEDS: INSULIN ASPART 100 UNIT/ML 1 ML 10 ML VIAL SQ SCH ×3 (12:30→21:24)
[2017-10-03 17:02] LABS: Glucose,Whole Blood 163 mg/dL (75-99)
[2017-10-03 19:58] LABS: Glucose,Whole Blood 185 mg/dL (75-99)
[2017-10-03] MEDS: SENNOSIDES-DOCUSATE SODIUM 1 EACH TAB PO SCH (21:24)
[2017-10-04] MEDS ORDERED: VANCOMYCIN TROUGH DUE 1 EACH MISC MISCELLANE ONE (05:00)
[2017-10-04] MEDS: VANCOMYCIN 2,000 MG in SODIUM CHLORIDE 0.9% 500 ML IVPB SCH (05:49)
[2017-10-04 07:08] LABS: Glucose,Whole Blood 161 mg/dL (75-99)
[2017-10-04] MEDS: metFORMIN 500 MG TAB PO SCH ×2 (07:46→21:52)
[2017-10-04] MEDS: GLIMEPIRIDE 1 MG TAB PO SCH (07:46)
[2017-10-04] MEDS: RIVAROXABAN 10 MG TAB PO SCH (07:46)
[2017-10-04] MEDS: INSULIN ASPART 100 UNIT/ML 1 ML 10 ML VIAL SQ SCH ×4 (08:09→21:52)
[2017-10-04] MEDS: traMADol 50 MG TAB PO SCH ×4 (09:21→21:52)
--- NOTE | 2017-10-04 09:32 | P.PN ---
Subjective Progress Note Date: 10/04/17 This 56-year-old gentleman was admitted to the hospital and underwent an emergency surgical procedure left knee. He had a left total knee arthroplasty done a month ago. He is had wound dehiscence with exposure of the prosthetic knee. Patient also had a quadriceps tendon rupture. He has undergone the surgical procedure and is in an immobilizer now. Patient denies any symptoms except for some pain which is well controlled. Patient does have history of diabetes mellitus. Patient's on insulin coverage beyond his usual home medications. Patient is doing better. He has history of obesity and associated obstructive sleep apnea. Recommended to bring in his CPAP from home today. Patient denies any other associated symptoms of chest pain shortness of breath cough. He does have frequent urination with no dysuria. No bowel movements yet. Appetite good. REVIEW OF SYSTEMS: Neuro: Denies any headaches dizziness. Psych: Denies anxiety depression feels oriented. Cardiac: Denies chest pain and angina palpitations. Respiratory: Denies shortness of breath cough. GI: Denies nausea vomiting or abdominal pain. No diarrhea or constipation, no bowel movement yet. : Denies dysuria hematuria. Extremities: Pain left knee Skin: Intact. Constitutional: No fever, chills. Objective - Vital Signs Vital signs: Vital Signs Temp 98 F 10/04/17 06:47 Pulse 76 10/04/17 06:47 Resp 14 10/04/17 06:47 BP 108/63 10/04/17 06:47 Pulse Ox 98 10/04/17 06:47 Intake & Output 10/03/17 10/04/17 10/04/17 18:59 06:59 18:59 Intake Total 1200 2060 Output Total 1100 2500 Balance 100 -440 Intake: Intake, IV Titration 1200 1450 Amount Lactated Ringers 1,000 ml 700 950 As IV .[facility] Rx#: [id number] Vancomycin 2,000 mg In 500 500 Sodium Chloride 0.9% 500 ml @ 167 mls/hr IVPB Q8H [facility] Rx#:[id number] Oral 610 Output: Urine 1100 2500 Other: Voiding Method Urinal Urinal Urinal # Voids 500 PHYSICAL EXAMINATION: Cooperative, at present in no acute distress. HEENT: Neck supple. No JVD. Chest: Clear to auscultation percussion. Cardiac: Normal S1-S2 no gallops no murmur . Abdomen: Soft bowel sounds present. Extremities: Trace edema both ankles. Left knee in an immobilizer Neurologically: Awake, alert, oriented with well-coordinated movements Both upper extremities and right lower leg. Left leg in an immobilizer - Labs CBC & Chem 7: 10/03/17 06:27 10/04/17 04:22 Labs: Abnormal Lab Results - Last 24 Hours (Table) 10/03/17 10/03/17 10/03/17 Range/Units 11:20 11:42 16:59 Creatinine (0.66-1.25) mg/dL POC Glucose (mg/dL) 215 H 163 H (75-99) mg/dL Urine Protein Trace H (Negative) Urine Glucose (UA) Trace H (Negative) Ur Leukocyte Esterase Large H (Negative) Urine WBC 120 H (0-5) /hpf Amorphous Sediment Rare H (None) /hpf Urine Bacteria Moderate H (None) /hpf Urine Mucus Occasional H (None) /hpf 10/03/17 10/04/17 10/04/17 Range/Units 19:56 04:22 07:03 Creatinine 0.50 L (0.66-1.25) mg/dL POC Glucose (mg/dL) 185 H 161 H (75-99) mg/dL Urine Protein (Negative) Urine Glucose (UA) (Negative) Ur Leukocyte Esterase (Negative) Urine WBC (0-5) /hpf Amorphous Sediment (None) /hpf Urine Bacteria (None) /hpf Urine Mucus (None) /hpf Microbiology - Last 24 Hours (Table) 10/03/17 11:20 Urine Culture - Preliminary Urine,Clean Catch Assessment and Plan Assessment: ASSESSMENT: 1. Diabetes mellitus on medical therapy. 2. Obstructive sleep apnea and recommended CPAP continuation. 3. Morbid obesity. 4. Status post left knee surgery. 5. Mild anemia secondary to acute blood loss. PLAN: Continue present medical regimen. Resume CPAP. Continue present insulin coverage along with his oral diabetic medications.
--- NOTE | 2017-10-04 10:00 | CONS ---
CONSULTATION ATTENDING PHYSICIAN: Dr. Ayers. CONSULTING PHYSICIAN: Dr. Ludivina Dupree. DATE OF CONSULT: 10/03/2017. DATE OF SERVICE: 10/03/2017. CHIEF COMPLAINT: Dehiscence, left knee post knee arthroplasty a month ago. HISTORY OF PRESENT ILLNESS: This is a 56-year-old gentleman seen on 10/03/2017 following admission and undergone emergency surgery to the left knee. I have been asked to see the patient for medical management. The patient does have diabetes mellitus, obstructive sleep apnea, and obesity. The patient says he was getting into the truck he had his right foot up and as he was getting on it the patient's left knee gave out. He had significant pain and noticed that the wound was gapping and he could see the recent surgical hardware. He comes to the emergency room. In the ER, the ER physician does record the patient had exposure of the hardware and the wound had dehiscence. In view of this, he underwent an emergency surgery of irrigation and subsequent repair. The patient also at that time noted to have a partial tear of his quadriceps tendon. The patient is seen postoperatively. He is lying in bed. Denies any major symptoms. PAST MEDICAL HISTORY: Significant for history of diabetes mellitus, previous history of lung cancer, hypertension and obesity. He does have obstructive sleep apnea. PAST SURGICAL HISTORY: Significant for right lung lobectomy in 2006, a bowel perforation surgery, and the left total knee arthroplasty. PERSONAL HISTORY: Ex-smoker. Alcohol none. ALLERGIES: PENICILLIN. MEDICATIONS: At home include: Lisinopril hydrochlorothiazide 25 mg daily, metformin 500 mg 2 tabs twice a day, vitamin C, vitamin D3, fish oil, aspirin 81 daily, and Amaryl 1 mg b.i.d. SOCIAL HISTORY: Patient , lives at home. FAMILY MEDICAL HISTORY: There is a history of diabetes in the family. REVIEW OF SYSTEMS: NEURO: Denies any headaches, dizziness. PSYCH: No anxiety, depression. CARDIAC: No chest pain, angina, palpitation. RESPIRATORY: Denies shortness of breath, cough. GI: No nausea, vomiting, abdominal pain, diarrhea. : No symptoms of dysuria, hematuria, urgency, frequency. EXTREMITIES: Denies edema. Has pain in the left knee. CONSTITUTIONAL: No fever, chills. HEMATOLOGICAL: No anemia or bleeding disorder. ENDOCRINE: History of diabetes mellitus and obesity. SKIN: No rashes. Does have chronic venostasis of both lower legs. CONSTITUTIONAL: No fever, chills. PHYSICAL EXAMINATION: Pleasant gentleman who appears his stated age, at present no distress. Vital signs revealed temperature 97.5, pulse 62, respirations 16, blood pressure 133/80, pulse ox 97% on room air. HEENT: Normocephalic. NECK: Supple. No JVD. CHEST: Clear to auscultation. CARDIAC: Normal S1, S2 with no gallops. Systolic murmur 2/6 left sternal border. ABDOMEN: Obese. No tenderness. Bowel sounds present. EXTREMITIES: Reveal edema of both ankles, trace. The left leg in an immobilizer. NEUROLOGICAL: Awake, alert, oriented with well-coordinated movements of both upper extremities. LABORATORY ASSESSMENT: CBC at the time of admission with hemoglobin at 13. This morning it was down to 11.7. Electrolytes; sodium 132. Blood sugar was 168 at the time of admission and was 204 fasting this morning. The patient has not received any medications. ASSESSMENT: 1. Diabetes mellitus with fair control. 2. Obesity. 3. History of obstructive sleep apnea. 4. Status post recent left knee arthroplasty, now presents with an injury, dehiscence of the wound as well as partial tear of the quadriceps tendon. PLAN: The patient at present is stable. Resume patient's diabetic medications. Continue with insulin coverage as needed. Patient's condition discussed with the patient. Prognosis guarded. MMODL / IJN: [id number] /
[2017-10-04 11:40] LABS: Glucose,Whole Blood 161 mg/dL (75-99)
[2017-10-04] MEDS: VANCOMYCIN 2,250 MG in SODIUM CHLORIDE 0.9% 500 ML IVPB SCH ×2 (14:36→21:53)
[2017-10-04 17:06] LABS: Glucose,Whole Blood 141 mg/dL (75-99)
[2017-10-04 19:56] LABS: Glucose,Whole Blood 151 mg/dL (75-99)
[2017-10-04] MEDS: SENNOSIDES-DOCUSATE SODIUM 1 EACH TAB PO SCH (21:52)
[2017-10-05] MEDS: VANCOMYCIN 2,250 MG in SODIUM CHLORIDE 0.9% 500 ML IVPB SCH (05:35)
[2017-10-05 06:54] VITALS: BP 137/82; PULSE 88; RESP 14; TEMP 97.6
[2017-10-05 07:11] LABS: Glucose,Whole Blood 156 mg/dL (75-99)
[2017-10-05 07:32] LABS: Basophils % (A) 0 %; Eosinophils # (A) 0.3 k/uL (0-0.7); Eosinophils % (A) 3 %; HCT 34.7 % (39.0-53.0); HGB 11.5 gm/dL (13.0-17.5); Lymphocytes # (A) 1.4 k/uL (1.0-4.8); Lymphocytes % (A) 16 %; MCH 29.6 pg (25.0-35.0); MCHC 33.1 g/dL (31.0-37.0); MCV 89.4 fL (80.0-100.0); Mean Platelet Volume 6.6; Monocytes # (A) 0.5 k/uL (0-1.0); Monocytes % (A) 5 %; Neutrophils # (A) 6.3 k/uL (1.3-7.7); Neutrophils % (A) 73 %; Platelet Count 227 k/uL (150-450); RBC 3.88 m/uL (4.30-5.90); RDW 14.6 % (11.5-15.5); WBC 8.6 k/uL (3.8-10.6)
[2017-10-05] MEDS: INSULIN ASPART 100 UNIT/ML 1 ML 10 ML VIAL SQ SCH (07:37)
[2017-10-05] MEDS: GLIMEPIRIDE 1 MG TAB PO SCH (07:37)
[2017-10-05] MEDS: metFORMIN 500 MG TAB PO SCH (09:07)
[2017-10-05] MEDS: RIVAROXABAN 10 MG TAB PO SCH (09:07)
[2017-10-05] MEDS: traMADol 50 MG TAB PO SCH (09:07)
--- NOTE | 2017-10-05 10:00 | P.PN ---
Subjective Progress Note Date: 10/05/17 Principal diagnosis: s/p left knee repair medial retinaculum, quadriceps tendon repair, skin dehiscence repair Patient seen today resting in hospital bed, he appears comfortable. Pain is controlled at this time. He denies chest pain and shortness of breath. Objective - Vital Signs Vital signs: Vital Signs Temp 97.6 F 10/05/17 06:47 Pulse 88 10/05/17 06:47 Resp 14 10/05/17 06:47 BP 137/82 10/05/17 06:47 Pulse Ox 95 10/05/17 06:47 Intake & Output 10/04/17 10/05/17 10/05/17 18:59 06:59 18:59 Intake Total 500 Output Total 1500 Balance -1000 Intake: Intake, IV Titration 500 Amount Vancomycin 2,250 mg In 500 Sodium Chloride 0.9% 500 ml @ 167 mls/hr IVPB Q8H [facility] Rx#:[id number] Output: Urine 1500 Other: Voiding Method Urinal Urinal Urinal # Voids 4 - Exam Left lower extremity: Initial postoperative bandage is removed today. Maureen are in good position, the incision is clean, dry and intact. Obvious soft tissue swelling present around the foot and ankle He is able to wiggle the toes and minimal difficulty, his dorsalis pedis pulses 2+. His sensory exam to light touch throughout the extremities intact. - Labs CBC & Chem 7: 10/05/17 06:31 10/04/17 04:22 Labs: Abnormal Lab Results - Last 24 Hours (Table) 10/04/17 10/04/17 10/04/17 Range/Units 11:38 16:57 19:52 RBC (4.30-5.90) m/uL Hgb (13.0-17.5) gm/dL Hct (39.0-53.0) % POC Glucose (mg/dL) 161 H 141 H 151 H (75-99) mg/dL 10/05/17 10/05/17 Range/Units 06:31 07:02 RBC 3.88 L (4.30-5.90) m/uL Hgb 11.5 L (13.0-17.5) gm/dL Hct 34.7 L (39.0-53.0) % POC Glucose (mg/dL) 156 H (75-99) mg/dL Microbiology - Last 24 Hours (Table) 10/03/17 11:20 Urine Culture - Final Urine,Clean Catch Assessment and Plan Plan: Assessment: 1. Postop day #3 status post left knee medial retinacular repair, quadriceps tendon repair and skin dehiscence repair Plan: Pain control, patient has oral pain medication GI and DVT prophylaxis, we'll discharge him on Xarelto 10 mg daily for 2 weeks Daily dressing changes Ice and elevate often Toe-touch weightbearing with left knee Medical recommendations We'll discharge home on oral antibiotics Plan for discharge today Time with Patient: Less than 30
--- NOTE | 2017-10-05 10:07 | P.PN ---
Subjective Progress Note Date: 10/04/17 Principal diagnosis: s/p left knee repair medial retinaculum, quadriceps tendon repair, skin dehiscence repair Patient seen today resting in hospital bed, he appears comfortable. Pain is controlled at this time. He denies chest pain and shortness of breath. Objective - Vital Signs Vital signs: Vital Signs Temp 98 F 10/04/17 06:47 Pulse 76 10/04/17 06:47 Resp 14 10/04/17 06:47 BP 108/63 10/04/17 06:47 Pulse Ox 98 10/04/17 06:47 Intake & Output 10/03/17 10/04/17 10/04/17 18:59 06:59 18:59 Intake Total 1200 2060 Output Total 1100 2500 Balance 100 -440 Intake: Intake, IV Titration 1200 1450 Amount Lactated Ringers 1,000 ml 700 950 As IV [facility] Rx#: [id number] Vancomycin 2,000 mg In 500 500 Sodium Chloride 0.9% 500 ml @ 167 mls/hr IVPB Q8H COUNT [facility] Rx#:[id number] Oral 610 Output: Urine 1100 2500 Other: Voiding Method Urinal Urinal Urinal # Voids 500 - Exam Left lower extremity: Initial postoperative bandage is removed today. Maureen are in good position, the incision is clean, dry and intact. Obvious soft tissue swelling present around the foot and ankle He is able to wiggle the toes and minimal difficulty, his dorsalis pedis pulses 2+. His sensory exam to light touch throughout the extremities intact. - Labs CBC & Chem 7: 10/03/17 06:27 10/04/17 04:22 Labs: Abnormal Lab Results - Last 24 Hours (Table) 10/03/17 10/03/17 10/04/17 Range/Units 16:59 19:56 04:22 Creatinine 0.50 L (0.66-1.25) mg/dL POC Glucose (mg/dL) 163 H 185 H (75-99) mg/dL 10/04/17 10/04/17 Range/Units 07:03 11:38 Creatinine (0.66-1.25) mg/dL POC Glucose (mg/dL) 161 H 161 H (75-99) mg/dL Microbiology - Last 24 Hours (Table) 10/03/17 11:20 Urine Culture - Preliminary Urine,Clean Catch Assessment and Plan Plan: Assessment: 1. Postop day #2 status post left knee medial retinacular repair, quadriceps tendon repair and skin dehiscence repair Plan: Pain control, continue Xarelto medications GI and DVT prophylaxis, continue current medication Daily dressing changes Ice and elevate often Toe-touch weightbearing with left knee Medical recommendations Continue IV antibiotics at this time Will likely discharged home tomorrow Time with Patient: Less than 30
--- NOTE | 2017-10-05 10:07 | P.DS ---
Providers Date of admission: 10/02/17 21:11 Expected date of discharge: 10/05/17 Attending physician: Faustino Ayers Consults: 10/03/17 09:08 Consult Physician Routine Consulting Provider: Tor Dupree Reason/Comments: medical Do you want consulting provider notified?: Already Contacted Primary care physician: Tor Dupree [facility] Course: Date of admission: 10/02/2017 Date of discharge: 10/05/2017 Admission diagnosis: Complete wound dehiscence left knee Discharge diagnosis: Status post irrigation left knee with open repair of quadriceps tendon, medial retinaculum and skin dehiscence Attending physician: Dr. Ayers Surgical procedures: Left knee irrigation with open repair of quadriceps tendon , medial retinaculum and skin dehiscence Brief history: Patient is a 56-year-old male who presented to the hospital on after injuring his left knee. Patient has a history of a recent left total knee arthroplasty that was done by Dr. Ayers, surgery was on 2017. Patient state when he was getting up into his truck, the knee gave out and he fell to the ground landing on his rear end. Patient noticed a whole wound was completely opened and the see his implants. He was immediately brought to the hospital, I was contacted by the emergency room staff. A quick evaluation was done by myself in the emergency room, patient was medially brought to the operating room with plan for irrigation and repair of damaged tissue. Hospital course: Details of patient's surgery can be found in operative report. Patient tolerated the procedure well and was subsequently transported to orthopedic floor. Patient's orthopeidc and medical care was provided daily. Patient had daily laboratory tests performed for evaluation of overall blood counts. Patient had daily physical therapy to include strengthening range of motion as well as education with walker ambulation. Patient was treated with Xarelto for their postoperative DVT prophylaxis during their inpatient stay. Patient was noted to have a relatively uneventful postoperative course. Patient reported satisfactory pain control with oral pain medications by postoperative day 0. Patient showed satisfactory progress with physical therapy. Patient moved steadily through the program and had no difficulty meeting the goals by postoperative day #3. Given patient's otherwise satisfactory course and having met physical therapy goals, plan is to discharge patient home on postoperative day 3. Discharge condition/disposition: Patient will be discharged home in stable condition. Discharge medications: Instructions are given on resumption of patient's normal daily medications per primary care recommendation, in addition patient will be prescribed . Discharge instructions: 1. Wound care and infection precautions, keep incision dry and covered while showering, no lotions, creams, moisturizers. No soaking, tubs, pools, hottubs. Do not scrub over the incision. 2. Toe-touch weightbearing with walker, utilize knee immobilizer 3. Ice and elevate when necessary. Do not exceed 20 minutes per hour with ice pack. 4. Utilize compression sleeve until seen at first follow up appointment. 5. Visiting nursing care. 6. Home physical therapy. 7. Pain meds and anticoagulants per prescription. 8. Pain medication has potential to cause constipation. Increase oral fluid and fiber intake. Contact primary care provider if you have not had a bowel movement within 48 hours after discharge 9. No anti-inflammatory medication until discussed at first post operative visit, this including Motrin, Aleve, Mobic, Diclofenac. 10. Follow up in office at 2 weeks postop with Ashish Woodard PA-C 11. Follow up with your primary care doctor 7-10 days after discharge. 12. Contact [facility] with any questions, . Procedures: Left knee irrigation with repair of left quadriceps tendon, medial retinaculum and skin dehiscence Patient Condition at Discharge: Good Plan - Discharge Summary New Discharge Prescriptions: New Clindamycin HCl [Cleocin] 300 mg PO Q8H #21 cap Rivaroxaban [Xarelto] 10 mg PO DAILY #12 tab No Action metFORMIN HCL [Glucophage] 1,000 mg PO BID Aspirin [Adult Low Dose Aspirin EC] 81 mg PO DAILY Multivitamins, Thera [Multivitamin (formulary)] 1 tab PO DAILY Vitamin E (Unknown Dose) 1 tab PO DAILY [place]-3 Fatty Acids/Fish Oil [Fish Oil 1,000 mg Softgel] 1 cap PO DAILY Lisinopril-Hctz 20-25 mg [Zestoretic 20-25] 1 tab PO DAILY Docusate [Colace] 100 mg PO DAILY #30 capsule traMADol HCl [Ultram] 50 mg PO Q6H PRN #40 tab PRN Reason: Pain Glimepiride [Amaryl] 1 mg PO AC-BRKFST #1 tab HYDROcodone/APAP 7.5-325MG [[place] 7.5] 1 - 2 tab PO Q6HR PRN PRN Reason: Pain Discharge Medication List Aspirin [Adult Low Dose Aspirin EC] 81 mg PO DAILY 08/31/17 [History] Lisinopril-Hctz 20-25 mg [Zestoretic 20-25] 1 tab PO DAILY 08/31/17 [History] Multivitamins, Thera [Multivitamin (formulary)] 1 tab PO DAILY 08/31/17 [History ] [place]-3 Fatty Acids/Fish Oil [Fish Oil 1,000 mg Softgel] 1 cap PO DAILY [History] Vitamin E (Unknown Dose) 1 tab PO DAILY 08/31/17 [History] metFORMIN HCL [Glucophage] 1,000 mg PO BID 08/31/17 [History] Docusate [Colace] 100 mg PO DAILY #30 capsule 09/08/17 [Rx] Glimepiride [Amaryl] 1 mg PO AC-BRKFST #1 tab 09/08/17 [Rx] traMADol HCl [Ultram] 50 mg PO Q6H PRN #40 tab 09/08/17 [Rx] HYDROcodone/APAP 7.5-325MG [[place] 7.5] 1 - 2 tab PO Q6HR PRN 10/02/17 [History] Clindamycin HCl [Cleocin] 300 mg PO Q8H #21 cap 10/05/17 [Rx] Rivaroxaban [Xarelto] 10 mg PO DAILY #12 tab 10/05/17 [Rx] Follow up Appointment(s)/Referral(s): Tor Dupree MD [Primary Care Provider] - 1-2 days [facility], [NON-STAFF] - Fabricio Woodard PAC [PHYSICIAN STOGIE PACKER] - 1 Week Activity/Diet/Wound Care/Special Instructions: Orthopedic Discharge Instructions: 1. Wound care and infection precautions, keep incision dry and covered while showering, no lotions, creams, moisturizers. No soaking, pools, hot tubs. Do not scrub over incision. 2. Utilize knee immobilizer, toe-touch weightbearing with walker 3. Ice and elevate when necessary. Do not exceed 20 minutes per hour with ice pack. 4. Utilize compression sleeve until seen at first follow up appointment. 5. Visiting nursing care. 6. Home physical therapy. 7. Pain meds and anticoagulants per prescription. 8. Pain medication has potential to cause constipation. Increase oral fluid and fiber intake. Contact primary care provider if you have not had a bowel movement within 48 hours after discharge. 9. No anti-inflammatory medication until discussed at first post operative visit, this including Motrin, Aleve, Mobic, Diclofenac. 10. Follow up in office at 2 weeks postop with Ashish Woodard PA-C 11. Follow up with your primary care doctor 7-10 days after discharge. 12. Contact [facility] with any questions, . Discharge Disposition: HOME WITH HOME HEALTH SERVICES
--- NOTE | 2017-10-06 00:13 | PN ---
PROGRESS NOTE ATTENDING PHYSICIAN: Dr. Ludivina Dupree. CHIEF COMPLAINT: Re-evaluation. HISTORY OF PRESENT ILLNESS: This is a 56-year-old gentleman who was admitted to the hospital due to dehiscence of his left knee surgical surgery. The patient had surgery about a month prior. He had a total knee arthroplasty. The patient is doing relatively well. Denies much pain. He has been on vancomycin prophylactically. He had a significant irrigation of the joint and resuturing. He also was noted to have a partial tear of the quadriceps tendon, which was repaired. The patient has a knee immobilizer. He is feeling relatively better. REVIEW OF SYSTEMS: NEURO: Denies any headaches or dizziness. PSYCH: No anxiety. CARDIAC: No chest pain, angina, palpitation. RESPIRATORY: Denies shortness of breath, cough. GI: No nausea, vomiting, abdominal pain, diarrhea. No bowel movement. : No symptoms of dysuria, hematuria. EXTREMITIES: No pain. CONSTITUTIONAL: No fever, chills. ENDOCRINE: Diabetes mellitus. Blood sugars acceptable range with mild elevated fasting blood sugar. PHYSICAL EXAMINATION: Pleasant gentleman in no distress. Vital signs reveals temperature 97.6, pulse 84, respirations 14, blood pressure 137/82, pulse ox 95% on room air. HEENT: Normocephalic. NECK: No JVD. CHEST: Clear to auscultation. CARDIAC: Normal S1, S2 with no gallops or murmurs. ABDOMEN: Soft, obese. Bowel sounds present. EXTREMITIES: Reveal bilateral occasion trace edema right leg, 1+ edema left lower leg. Left knee in flexion. LABORATORY ASSESSMENT: Blood sugars were 156 this morning. Hemoglobin 11.5. ASSESSMENT: 1. Diabetes mellitus under fair control. 2. Status post left knee surgery. 3. Obesity. 4. Obstructive sleep apnea on CPAP. 5. Mild anemia secondary to blood loss post surgery. PLAN: The patient is stable. Continue present medical regimen. Patient's condition discussed with the patient. Prognosis guarded. MMODL / IJN: [id number] /
[2017-10-06] MEDS ORDERED: VANCOMYCIN TROUGH DUE 1 EACH MISC MISCELLANE ONE (05:00)
== END 2017-10-05 11:23 | disposition home health service (06) | DRG 908 ==
LOC: EC 20:04 → 3SUR 21:11
PROVIDERS: ADMIT Orthopaedic Surgery; ATTEND Orthopaedic Surgery
PROC: 0LQR0ZZ Repair Left Knee Tendon, Open Approach (ICD-10-PCS; principal; 2017-10-02 21:10)
DX: T81.32XA Disruption of internal operation (surgical) wound, not elsewhere classified, initial encounter (principal); D62 Acute posthemorrhagic anemia; Z68.41 Body mass index [BMI] 40.0-44.9, adult; E11.9 Type 2 diabetes mellitus without complications; E66.01 Morbid (severe) obesity due to excess calories; G47.33 Obstructive sleep apnea (adult) (pediatric); I10 Essential (primary) hypertension; S76.119A Strain of unspecified quadriceps muscle, fascia and tendon, initial encounter; Z79.01 Long term (current) use of anticoagulants; Z79.82 Long term (current) use of aspirin; Z79.84 Long term (current) use of oral hypoglycemic drugs; Z83.3 Family history of diabetes mellitus; Z85.118 Personal history of other malignant neoplasm of bronchus and lung; Z87.891 Personal history of nicotine dependence; Z96.652 Presence of left artificial knee joint; Z79.891 Long term (current) use of opiate analgesic; Z88.0 Allergy status to penicillin
CPT/HCPCS: 36415; 80053; 80202; 81001; 82550; 82553; 82565; 83735; 84100; 84484; 85025; 85610; 85730; 87086; 96361; 96374; 99285

== ENCOUNTER 2019-02-01 12:45 | Emergency (ER) | payer BC, OTHER ==
[2019-02-01 12:58] VITALS: BP 161/80; PULSE 51; RESP 16; TEMP 97.6
--- NOTE | 2019-02-01 13:15 | ED ---
Extremity Problem HPI - General Chief complaint: Extremity Problem,Nontraumatic Stated complaint: trouble walking/pain in both legs Time Seen by Provider: 02/01/19 13:00 Source: patient Mode of arrival: wheelchair Limitations: no limitations - History of Present Illness Initial comments: Patient is a 58-year-old male presenting to the emergency Department with complaints of pain in his bilateral extremities when he is walking x 1 week. Patient states he was recently treated for a kidney infection and had a follow- up with his PCP, Dr. Dupree, yesterday. Dr. Dupree recommended he come to the ER for a possible computed tomography scan. Patient denies having fever, chills. Patient denies pain in his legs or back at rest. Patient denies history of back surgeries. Denies numbness and tingling into her extremities. Patient states when he stands still, the pain is minimal. Patient states when he attempts to take steps he has pain on the outside of both hips down to the outside of his knees and also feels weak. Patient is currently walking with a walker secondary to this weakness. Patient denies any falls or trauma. Patient did go see his scalp doctor a few days ago who did do x-rays of his hips and low back, that shows no acute abnormalities. Patient has no other complaints at this time. Upon arrival to the ER, vital signs are stable. - Related Data Home Medications Medication Instructions Recorded Confirmed Aspirin [Adult Low Dose Aspirin EC] 81 mg PO DAILY 08/31/17 10/02/17 Lisinopril-Hctz 20-25 mg 1 tab PO DAILY 08/31/17 10/02/17 [Zestoretic 20-25] Multivitamins, Thera [Multivitamin 1 tab PO DAILY 08/31/17 10/02/17 (formulary)] [place]-3 Fatty Acids/Fish Oil [Fish 1 cap PO DAILY 08/31/17 10/02/17 Oil 1,000 mg Softgel] Vitamin E (Unknown Dose) 1 tab PO DAILY 08/31/17 10/02/17 metFORMIN HCL [Glucophage] 1,000 mg PO BID 08/31/17 10/02/17 HYDROcodone/APAP 7.5-325MG [[place] 1 - 2 tab PO Q6HR PRN 10/02/17 10/02/17 7.5] Previous Rx's Medication Instructions Recorded Docusate [Colace] 100 mg PO DAILY #30 capsule 09/08/17 Glimepiride [Amaryl] 1 mg PO AC-BRKFST #1 tab 09/08/17 traMADol HCl [Ultram] 50 mg PO Q6H PRN #40 tab 09/08/17 Clindamycin HCl [Cleocin] 300 mg PO Q8H #21 cap 10/05/17 Rivaroxaban [Xarelto] 10 mg PO DAILY #12 tab 10/05/17 Allergies Allergy/AdvReac Type Severity Reaction Status Date / Time Penicillins AdvReac Unknown PASSED OUT Verified 02/01/19 12:58 Review of Systems ROS Statement: Those systems with pertinent positive or pertinent negative responses have been documented in the HPI. ROS Other: All systems not noted in ROS Statement are negative. Past Medical History Past Medical History: Cancer, Diabetes Mellitus, Hypertension, Osteoarthritis (OA), Sleep Apnea/CPAP/BIPAP Additional Past Medical History / Comment(s): HX LUNG CANCER WITH 1/3 OF RIGHT LUNG REMOVED WITH CHEMO(10YRS AGO).,USES C-PAP MACHINE., [employer]. History of Any Multi-Drug Resistant Organisms: None Reported Past Surgical History: Joint Replacement, Orthopedic Surgery Additional Past Surgical History / Comment(s): 1/3 RIGHT LUNG REMOVED. Hole in intestines surgery to repair Past Anesthesia/Blood Transfusion Reactions: No Reported Reaction Past Psychological History: No Psychological Hx Reported Smoking Status: Former smoker Past Alcohol Use History: Rare Past Drug Use History: None Reported - Past Family History Mother Family Medical History: No Reported History General Exam - General Exam Comments Initial Comments: GENERAL: Well-appearing, well-nourished and in no acute distress. HEAD: Atraumatic, normocephalic. EYES: Pupils equal round and reactive to light, extraocular movements intact, sclera anicteric, conjunctiva are normal. ENT: TMs normal, nares patent, oropharynx clear without exudates. Moist mucous membranes. NECK: Normal range of motion, supple without lymphadenopathy or JVD. LUNGS: Breath sounds clear to auscultation bilaterally and equal. No wheezes rales or rhonchi. HEART: Regular rate and rhythm without murmurs, rubs or gallops. ABDOMEN: Soft, nontender, normoactive bowel sounds. No guarding, no rebound. No masses appreciated. : Deferred EXTREMITIES: Normal range of motion of bilateral hips, knees. No pain with range of motion of the hips or knees. Patient has bilateral lower leg edema that is chronic in nature and consistent with venous insufficiency. 5 out of 5 strength bilateral lower extremities. Sensation is equal and bilateral. No clubbing or cyanosis. NEUROLOGICAL: Cranial nerves II through XII grossly intact. Normal speech. PSYCH: Normal mood, normal affect. SKIN: Warm, Dry, normal turgor, no rashes or lesions noted. Limitations: no limitations Course Vital Signs 02/01/19 12:56 Temperature 97.6 F Pulse Rate 51 L Respiratory 16 Rate Blood Pressure 161/80 O2 Sat by Pulse 97 Oximetry Medical Decision Making - Medical Decision Making Patient is a 58-year-old male presenting with weakness and pain on the outside of both hips times one week. Patient was seen by his PCP, Dr. Dupree yesterday in office recommended he come to the ER for a computed tomography scan. No acute findings on exam today. CT lumbar shows degenerative disc disease and mild spinal stenosis. Findings were discussed with the patient. Patient will follow-up with Dr. Dupree in the office for further management. Patient is comfortable with this plan of care. Patient will be discharged home. Return parameters were discussed with the patient and he verbalized understanding. Case discussed with Dr. Crawford. Disposition Clinical Impression: Bilateral leg pain, Muscle weakness of lower extremity Disposition: HOME SELF-CARE Condition: Stable Instructions (If sedation given, give patient instructions): Leg Pain (ED) Additional Instructions: Please return to the Emergency Department if symptoms worsen or any other concerns. Follow-up with Dr. Dupree for further management. Continue to use a walker as needed for weakness. Is patient prescribed a controlled substance at d/c from ED?: No Referrals: Tor Dupree MD [Primary Care Provider] - 1-2 days
--- NOTE | 2019-02-01 14:03 | CT ---
EXAMINATION TYPE: CT lumbar spine wo con DATE OF EXAM: 02/01/2019 COMPARISON: No plain film supplied for correlation HISTORY: Bilateral leg pain/weakness CT DLP: 2608.4 mGycm Automated exposure control for dose reduction was used. An unenhanced CT of the lumbar spine was performed. Bone and soft tissue window settings are submitt ed as well as coronal and sagittal reconstructions. FINDINGS: Lumbar vertebral bodies show preserved height and near-anatomic alignment. There is multilevel spondy losis. Loss of disc height present L1-2, L2-3 and L3-4, there is associated vacuum phenomenon. Verteb ral body mineralization is normal. L1-L2: Posterior broad-based disc bulge causes anterior mass effect on the thecal sac. No significant central stenosis. Circumferential extension endplate disc complex encroaches upon the neural foramin a. L2-L3: Moderate to severe central stenosis present due to posterior extension of broad-based disc bul ge, endplate disc complex, circumferential extension encroaches on the foramina. There is facet arthr opathy with hypertrophy of ligamentum flavum also noted. L3-L4: Facet arthropathy changes present with hypertrophy of ligamentum flavum, there is associated c ircumferential posterior disc bulge resulting in a trefoil thecal sac, moderate central stenosis. Irina rt pedicles may contribute to cause some foraminal encroachment. L4-L5: There is facet arthropathy change with hypertrophy ligamentum flavum causing posterior lateral mass effect on the thecal sac. Posterior broad-based disc bulge causes anterior mass effect on the t hecal sac. This may be somewhat more eccentric towards the left with a lateral disc herniation extend ing causing left-sided foraminal encroachment, more mild right-sided foraminal encroachment present d ue to lateral extension of endplate disc complex. Suspect mild spinal stenosis. L5-S1: Broad-based posterior disc bulge causes mild anterior mass effect on the thecal sac. Circumfer ential extension of endplate disc complex encroaches somewhat on the foramina. No significant spinal stenosis. Diverticular change noted in the sigmoid colon. Atheromatous vascular calcifications noted incidental ly. No paraspinal masses are identified. Lumbar segments are intact. IMPRESSION: Degenerative disc disease and facet arthropathy. Spinal stenosis.
== END 2019-02-01 14:53 | disposition home or self-care (01) ==
LOC: EC 12:45
DX: M79.605 Pain in left leg (principal); M79.604 Pain in right leg; M62.81 Muscle weakness (generalized); M51.36 Other intervertebral disc degeneration, lumbar region; M48.061 Spinal stenosis, lumbar region without neurogenic claudication; E11.9 Type 2 diabetes mellitus without complications; I10 Essential (primary) hypertension; Z79.84 Long term (current) use of oral hypoglycemic drugs; Z79.82 Long term (current) use of aspirin; Z79.899 Other long term (current) drug therapy; Z88.0 Allergy status to penicillin; Z87.891 Personal history of nicotine dependence; Z85.118 Personal history of other malignant neoplasm of bronchus and lung; Z90.2 Acquired absence of lung [part of]
CPT/HCPCS: 72131; 99283

== ENCOUNTER → 2019-02-22 | Outpatient (CLI) | payer OTHER ==
--- NOTE | 2019-02-22 11:02 | XR ---
EXAMINATION TYPE: XR knee limited LT DATE OF EXAM: 02/22/2019 CLINICAL HISTORY: Knee pain and limited movement, history of surgery one year ago. TECHNIQUE: Three views of the left knee are obtained. COMPARISON: Prior left knee x-ray October 02, 2017. FINDINGS: There is no acute fracture evident in left knee. Metallic hardware from left knee arthropl asty redemonstrated. Position stable. Lateral subluxation or dislocation of the patella redemonstrate d with subchondral cystic change deep aspect and anterior superior spurring. Moderate diffuse soft ti ssue swelling remains present. IMPRESSION: As above.
== END | disposition home or self-care (01) ==
LOC: RADXRMAIN 10:40
PROVIDERS: ATTEND Orthopaedic Surgery
DX: M79.89 Other specified soft tissue disorders (principal)

== ENCOUNTER → 2019-06-28 | Outpatient (CLI) | payer OTHER ==
--- NOTE | 2019-06-28 19:47 | PN ---
PROGRESS NOTE 58-year-old male patient with severe THOMAS with an AHI of 109, coming in for followup. His last evaluation approximately 3 years ago. The patient remains on an APAP with a minimum pressure of 10 and maximum pressure of 20. He was using an AirFit fullface mask. He was unable to get his refills. He was given a Dreamwear under the nose fullface mask which he did not like and he got worse and for that reason, he is coming in for a followup. I checked the compliance data and the patient numbers look great with exception of increased leak which is in the order of 37 beats per minute. AHI is down to 1. He is averaging about 7.2 hours of CPAP use per night with CPAP use of more than 4 hours being in the order of 100%. On today's evaluation, I introduced an AirFit F20 full face mask with sound, which he liked. His weight has been stable. medical problems and comorbidities. He is very compliant with CPAP unit and wears it every night and he continues to benefit from the treatment without any major complaints. PERTINENT PHYSICAL FINDINGS: Height is 5 feet 10 inches, weight is 307. BMI 43.9, BP is 194/84, pulse 60, respirations 16, temperature 97.7, saturation 96% on room air. GENERAL APPEARANCE: Calm comfortable. Head is atraumatic, normocephalic. NECK: Supple. Mallampati class IV. There is no goiter or neck mass. Lungs diminished, otherwise clear. HEART: Sounds are distant. Heart was S1, S2. No S3, S4. No murmurs. ABDOMEN: Soft, nontender. No organomegaly. EXTREMITIES: No edema. No clubbing. NEUROLOGIC: Awake and alert. There are no focal neurological deficits. IMPRESSION: 1. Severe obstructive sleep apnea with an AHI of 109 currently on APAP with successful clinical response and compliance. 2. Obesity with interval weight loss. 3. Hypersomnia well treated with CPAP and the patient's [place] score is down to 1. 4. Diabetes mellitus. 5. Hypertension. 6. History of lung cancer resected. PLAN: 1. Continue APAP at the same pressure, minimum of 10 and maximum of 20. 2. AirFit F20 full face mask. 3. Encourage further weight loss. 4. Treatment is successful. Compliancy was checked. Will see me back in a year's time in followup, earlier if needed. 5. I gave him a refill for AirFit F20 full face mask large size. We will continue to follow. MMODL / IJN: [id number] /
== END | disposition home or self-care (01) ==
LOC: SLEEP 16:44
PROVIDERS: ATTEND Internal Medicine Critical Care Medicine
DX: G47.33 Obstructive sleep apnea (adult) (pediatric) (principal); E66.9 Obesity, unspecified; G47.10 Hypersomnia, unspecified; E11.9 Type 2 diabetes mellitus without complications; I10 Essential (primary) hypertension; Z98.890 Other specified postprocedural states; Z99.89 Dependence on other enabling machines and devices

== ENCOUNTER → 2020-10-30 | Outpatient (CLI) | payer OTHER ==
--- NOTE | 2020-10-30 17:01 | PN ---
PROGRESS NOTE This patient is known to have obstructive sleep apnea. The patient's AHI is 109. The patient is on an APAP, pressure minimum of 10 and maximum of 20 and the patient is coming in for an annual check. Extremely compliant with his CPAP unit. Compliance data shows that the patient has been utilizing his machine every night. CPAP compliance for more than 4 hours is 100%, averaging around 7.8 hours of CPAP use per night. His average pressure delivered by the CPAP pressures is around 14.4 cm of water with a leak of 61 L/minute. His AHI is down to 0.5. He is using AirFit F20 medium- sized full-face mask. No new complaints. No new onset comorbidities, hemodynamically stable, yet hypertensive and his blood pressure needs to be under tighter control. BP today is 182/72 without any reported side effects. BP is 192/71, pulse 66, respirations 16, temperature 97.8. Saturation 96% on room air. Height 5 feet, 10 inches, weight 318, BMI 45.6. General appearance: Obese, calm, comfortable. Head is atraumatic, normocephalic. Mallampati class 4. Lungs diminished, otherwise clear. Heart sounds are regular rate and rhythm. Normal S1, S2. No S3, no murmurs. Abdomen soft, nontender. No organomegaly. Extremities: No edema. No cyanosis or clubbing. Neurologic: Awake and alert. There is no focal neurological deficits. Psychiatric: Negative for anxiety or depression. IMPRESSION: 1. Severe obstructive sleep apnea, AHI of 109 currently on APAP treatment. Pressure minimum of 10, maximum of 20 with excellent clinical response and compliancy. 2. Hypertension with poorly controlled blood pressure. 3. Diabetes mellitus. 4. Hypersomnia, improved. 5. Obesity BMI of 45.6. 6. History of lung cancer resected. PLAN: 1. Continue APAP at same level of pressure. 2. There has been some increased leak around the mask which was in the order of 61 L/minute. I am suggesting up sizing his AirFit F20 to a large-sized leodan and medium- sized full-face mask. 3. Encourage weight loss. 4. Optimize sleep hygiene measures. 5. See me back in a year's time in followup, earlier if needed. Treatment in general is successful. MMODL / IJN: [id number] /
== END ==
LOC: SLEEP 14:37
PROVIDERS: ATTEND Internal Medicine Critical Care Medicine
DX: G47.33 Obstructive sleep apnea (adult) (pediatric) (principal); I10 Essential (primary) hypertension; E11.9 Type 2 diabetes mellitus without complications; E66.9 Obesity, unspecified; Z68.42 Body mass index [BMI] 45.0-49.9, adult; Z85.118 Personal history of other malignant neoplasm of bronchus and lung; Z99.89 Dependence on other enabling machines and devices; Z87.891 Personal history of nicotine dependence; Z88.0 Allergy status to penicillin
CPT/HCPCS: 99202

== ENCOUNTER → 2020-12-18 | Outpatient (CLI) | payer OTHER ==
--- NOTE | 2020-12-18 17:46 | PN ---
PROGRESS NOTE Renard is coming in for a short-term followup regarding his obstructive sleep apnea treatment. He noted that the patient was having excessive amount of leak and he was concerned. I checked the machines compliancy again. His leak is in the order of 50 L/minute. Nevertheless, despite the leaks, this patient has been successfully treated. The patient's AHI is down to 0.5. His average pressure delivered by the machine of 14.7 and CPAP use for more than 4 hours is above 90%. No major hypersomnia or sleepiness during the day and he is doing well. His weight has been stable. Note that he has a case of severe obstructive sleep apnea with an AHI of 109. REVIEW OF SYSTEMS: Fourteen-point review of system was done. Positive findings are mentioned in history of present illness. PHYSICAL EXAMINATION: His current vitals: Blood pressure is 156/82, pulse 71, respirations 20, temperature 97.6, saturation 93% on room air. Weight is 316. GENERAL APPEARANCE: Calm, comfortable. HEAD is atraumatic, normocephalic. NECK: Supple. There is no JVD, no goiter, no neck mass. LUNGS: Clear. Otherwise, diminished in lung bases. HEART: Heart sounds are regular rate and rhythm. Normal S1/S2. No murmurs. ABDOMEN: Soft, nontender. No organomegaly. EXTREMITIES: No edema, cyanosis or clubbing. NEUROLOGIC: Awake and alert. There is no focal neurological deficit. PSYCHIATRIC: Negative for anxiety or depression. IMPRESSION: 1. Obstructive sleep apnea, severe, successfully treated with CPAP. The patient's AHI is 109 and the patient is on an APAP mode. 2. Increased leaks around the mask, despite changing the mask to an AirFit F20 full- face mask, large size. 3. Hypersomnia, improved. 4. Obesity. 5. History of lung cancer. PLAN: 1. Continue APAP treatment. 2. Switch this patient from AirFit F20 to an AirFit F30 small size full face mask. 3. Despite the limited air leak seen, the patient's treatment has been successful and the patient will be kept on the same pressure setting. We will change the mask interface. Will contact me back if there are any issues with leaks. MMODL / IJN: [id number] /
== END ==
LOC: SLEEP 15:31
PROVIDERS: ATTEND Internal Medicine Critical Care Medicine
DX: G47.33 Obstructive sleep apnea (adult) (pediatric) (principal); E66.9 Obesity, unspecified; Z87.891 Personal history of nicotine dependence; Z88.0 Allergy status to penicillin; Z85.118 Personal history of other malignant neoplasm of bronchus and lung; Z99.89 Dependence on other enabling machines and devices